=== PATIENT | female | born 1935 | race Caucasian/White ===

== ENCOUNTER 2021-09-17 13:40 | Outpatient (REF) | payer MEDICARE, SELFPAY ==
[2021-09-17 15:55] LABS: MANUAL DIFF FLAG NO
[2021-09-17 15:58] LABS: Basophils Percent Auto 0.6 % (0-2); Eosinophils Absolute Auto 0.1 X10*3/uL (0.0-0.4); Eosinophils Percent Auto 1.2 % (0-4); Hematocrit 38.8 % (37.0-47.0); Hemoglobin 12.9 g/dl (12.0-16.0); Imm Gran Abs Auto 0.01 X10*3/uL (0.00-0.03); Imm Gran Pct Auto 0.2 % (0.0-0.4); Lymphocytes Absolute Auto 1.3 X10*3/uL (1.2-4.9); Lymphocytes Percent Auto 25.4 % (20-40); Mean Corpuscular HGB Conc 33.2 g/dl (31.0-35.0); Mean Corpuscular Hemoglobin 30.1 pg (27.0-33.0); Mean Corpuscular Volume 90.7 fL (80.0-98.0); Mean Platelet Volume 11.5 fL (9.4-12.3); Monocytes Absolute Auto 0.4 X10*3/uL (0.1-1.2); Monocytes Percent Auto 7.3 % (2-11); Neutrophils Absolute Auto 3.2 x10*3/uL (2.0-8.3); Neutrophils Percent Auto 65.3 % (45-73); Platelet Count 204 X10*3/uL (160-400); Red Blood Count 4.28 X10*6/uL (4.20-5.50); Red Cell Distribution Width 13.1 % (11.0-16.0); White Blood Count 4.9 X10*3/uL (4.8-10.8)
[2021-09-17 16:10] LABS: Alanine Aminotransferase 14 U/L (0-31); Albumin Level 4.1 g/dL (3.5-5.0); Alkaline Phosphatase 108 U/L (39-117); Anion Gap 13 (12-20); Aspartate Amino Transferase 22 U/L (5-31); Bilirubin Total 0.9 mg/dL (0.0-1.0); Blood Urea Nitrogen 24 mg/dL (9-16); Calcium 9.1 mg/dL (8.4-10.2); Carbon Dioxide 25 mmol/L (22-29); Chloride 104 mmol/L (96-108); Cholesterol 207 mg/dL; Estimated Glomerular Filt Rate > 60; Glucose Random 114 mg/dL (60-115); Potassium 4.4 mmol/L (3.3-5.1); Sodium 138 mmol/L (135-145); Total Protein 6.8 g/dL (6.5-8.0)
[2021-09-17 16:26] LABS: B Type Natriuretic Peptide 244 pg/mL (<100)
[2021-09-17 16:32] LABS: Free T4 (Free Thyroxine) 1.16 ng/dL (0.71-1.85); Thyroid Stimulating Hormone 0.88 uIU/mL (0.32-4.0); Vitamin D 25-OH Total 13.7 ng/mL (>30)
== END 2021-09-17 13:41 | disposition home or self-care (01) ==
LOC: HO.HMGCLDS 13:40
PROVIDERS: Visit Provider Internal Medicine
DX: I10 Essential (primary) hypertension (principal); R60.9 Edema, unspecified; M81.0 Age-related osteoporosis without current pathological fracture; R63.4 Abnormal weight loss
CPT/HCPCS: 36415; 80053; 82306; 82465; 83880; 84439; 84443; 85025

== ENCOUNTER 2024-11-02 09:12 | Emergency (ER) | payer MEDICARE, SELFPAY ==
[2024-11-02] VITALS (7 sets, daily range): BP systolic 168–215; BP diastolic 69–119; PULSE 63–83; RESP 16–18; TEMP 35.8–36.8; O2SAT 95–99; BMI 17.6
--- NOTE | ~2024-11-02 | XR_ITS ---
CLINICAL HISTORY: trauma 4 view right knee Comparison: None Findings: Bones intact. No dislocations. There is advanced tricompartmental degenerative change present. No joint effusion. No radiopaque foreign body. IMPRESSION: 1. No acute findings. Tricompartmental degenerative change. This document has been electronically signed by: Celestino Jean Baptiste MD on 11/02/2024 12:11:45
--- NOTE | ~2024-11-02 | CT_ITS ---
CLINICAL HISTORY: RT KNEE PAIN ? FX CT of the right lower leg without contrast Comparison: None Findings: Visualized soft tissues are unremarkable. Diffuse osteopenia. No significant loss of joint space or osteophytes. No acute fracture. Tricompartmental periarticular osteophyte formation, indicating osteoarthritis. Periarticular osteophyte formation at the tibiotalar, talonavicular, naviculocuneiform, and subtalar joints. Calcaneal spurring. IMPRESSION: No acute findings. This document has been electronically signed by: Moise Fabian MD on 11/02/2024 14:39:26
--- NOTE | ~2024-11-02 | XR_ITS ---
CLINICAL HISTORY: trauma 1 view pelvis Comparison: None Findings: No acute fracture or dislocation. Moderate degenerative change at both hips. Soft tissues are unremarkable. IMPRESSION: 1. No acute findings. Moderate degenerative changes. This document has been electronically signed by: Celestino Jean Baptiste MD on 11/02/2024 12:10:28
--- NOTE | 2024-11-02 09:27 | ED_ITS ---
HPI - Fall General Chief Complaint: Fall Stated Complaint: WEAK,FALL LAST NIGHT,RLE PAIN/MOVEMENT,219/101 Time Seen by Provider: 11/02/24 09:19 Source: patient Mode of arrival: EMS Limitations: no limitations History of Present Illness HPI Narrative: This is a magaly 89 years old female patient presented to the emergency department after a fall last night. She is complaining of right knee pain she said she fell because the leg gave up. Denies any LOC denies any chest pain or shortness of breath she has a history of hypertension she has not taken BP medication this morning complaint: fall Onset (ago): day(s) (1) Fall from: standing Fall witnessed: no Place fall occurred: home Prolonged down time: no Symptoms prior to fall: none Context: tripped/slipped Location of injury - extremities: right: knee Severity: moderate Quality: burning Associated symptoms (after fall): denies Related Data Home Medications ?Medication ?Instructions ?Recorded ?Confirmed acetaminophen 325 mg tablet 325 mg PO BID 11/02/24 11/02/24 (Tylenol) aspirin 81 mg tablet,delayed 81 mg PO DAILY 11/02/24 11/02/24 release irbesartan 75 mg tablet 37.5 mg PO BID 11/02/24 11/02/24 Allergies Allergy/AdvReac Type Severity Reaction Status Date / Time No Known Drug Allergies Allergy Unknown U Verified 11/02/24 09:37 lisinopril [LISINOPRIL] AdvReac Intermediate COUGH Verified 11/02/24 09:37 Review of Systems 2 Constitutional: Constitutional: Reports no additional constitutional complaints ENT: Reports system reviewed and no additional complaints, except as documented Gastrointestinal: Gastrointestinal: Reports no additional gastrointestinal complaints [facility] Past Medical History Attestation statement: The following information was validated with the patient. [facility] Narrative: Hypertension Social History Social History Smoked in Last 30 Days: No Use of substances other than those prescribed or required for medical reasons: No Advance Directives: No Advance Directives Information Provided: Yes Do you have a plan to hurt others: No Plan Physical Exam 2 Vital Signs: Vital Signs: Last Vital Signs Temp 98.1 F 11/03/24 14:54 Pulse 75 11/03/24 14:54 Resp 20 11/03/24 14:54 BP 152/61 H 11/03/24 14:54 Pulse Ox 97 11/03/24 12:52 O2 Del Method Room Air, Oxymize r 11/03/24 14:54 BMI result Body Mass Index 17.6 Looks well not toxic appearing Const: General: cooperative Nutritional Appearance: well nourished O rientation/consciousness: patient oriented x3 HEENT: Head: Yes normal to inspection General nose exam: Normal external nose present Face and sinus: Yes normal facial exam Mouth: Normal oral and palatal mucosa present Throat: Yes posterior oropharynx normal Neck: Neck: Yes normal visual inspection and Yes full ROM Chest: Chest palpation & inspection: normal inspection of the chest Cardio: Jugular venous distension: no JVD Rate: regular rate GI: Inspection: Yes normal to inspection Palpation (GI): Soft to palpation, not firm and nontender Percussion: Yes normal to percussion Skin: General skin exam: no rashes or lesions noted and elasticity normal L esions: no lesions Rashes: no rashes Neuro: General: patient oriented x3 Extrem: Other: Tenderness in the right knee no deformity no effusion Course Reevaluation(s) Reevaluation #1: 15:20 THE PATIENT UNABLE TO AMBULATE WE ATTEMPTED AMBULATION TWICE, SHE LIVES HOME, AT THIS POINT WE WILL CONSULT SALES SUPPORT CONSULTANT A PT. PATIENT WILL BE ED OBS AT THIS POINT PATIENT WILL BE SIGNED OUT TO THE INCOMING ATTENDING AND 16:[address] Jones Time: 15:33 Reevaluation #2: Time: 17:58 Date: 11/02/24 Provider: Allen Mendieta MD Start physician observation Patient in physician observation for case management needs. The patient fell yesterday at 23:15 hours and did fall to her knees. According to the son she was able to get up several times during the night to use the bathroom. This morning however she was unable to get up and bear weight secondary to severe pain in her right knee. Patient was initially seen by Dr. Prieto and workup was negative including a negative CT scan of the right knee. On my evaluation the patient has symmetric edema to both lower extremities, right knee does not reveal any obvious evidence for trauma, there is no joint effusion, she does have pain with palpation of both knees and pain with flexion and extension of both knees. Patient was unable to stand and walk secondary to pain. Patient has been placed in physician observation for case management evaluation and physical therapy evaluation in the morning to determine if the patient meets criteria for shelter facility treatment or home care. I did fill out a MOLST form with the patient and she is a DNR DNI. She wants to use a noninvasive measures, transfer to hospital and IV fluid treatment but no IV nutrition. Patient was given Tylenol 975 mg orally for her pain. I also ordered ice to be applied to her right knee for 15-20 minutes every shift. Patient will be kept in physician observation and we will monitor her until a disposition can be determined. Time: 10:17 Date: 11/03/24 Provider: CEDRICK Triplett Patient in physician observation for case management needs. No acute events reported overnight.? No current issues or complaints. VS stable. Patient was evaluated by Physical therapy this morning and short-term rehab recommended. Case management working on placement. Will continue to monitor. Time: 14:54 Date: 11/03/24 Provider: Allen Mendieta MD Physician observation ended at 14:54. [facility] Medications Administered Discontinued Medications Generic Name Dose Route Start Last Admin Trade Name Freq PRN Reason Stop Dose Admin Acetaminophen 975 mg 11/02/24 11:25 11/02/24 11:58 Acetaminophen 325 Mg Tablet PO 11/02/24 11:26 975 mg ONCE ONE Administration Acetaminophen 650 mg 11/02/24 17:48 11/03/24 09:23 Acetaminophen 325 Mg Tablet PO 650 mg Q4H PRN Administration Pain, Moderate(Pain Scale 4-6) Aspirin 81 mg 11/02/24 17:15 11/03/24 09:23 Aspirin 81 Mg Tab.Chew PO 81 mg DAILY THOMAS Administration Oxycodone HCl 5 mg 11/02/24 20:04 11/02/24 20:34 Oxycodone Hcl Immed Release 5 Mg Tablet PO 5 mg Q4H PRN Administration Pain, Moderate(Pain Scale 4-6) Valsartan 20 mg 11/02/24 18:00 11/03/24 09:23 Valsartan 40 Mg Tablet PO 20 mg DAILY THOMAS Administration Medical Decision Making Medical Decision Making MDM Narrative: Patient presented after a fall we will obtain imaging of the right knee she is complaining of right knee pain also pelvis we will check blood work Differential Diagnosis Differential Diagnoses: The differential diagnosis associated with the presentation includes Fracture knee/dislocation/sprain Admission/Observation Consideration of admission/observation: Escalation of care including admission/observation considered Lab Data 11/02/24 09:58 11/02/24 09:58 Labs: Lab Results 11/02/24 11/02/24 11/03/24 Range/Units 09:58 12:18 13:36 WBC 4.9 (4.8-10.8) X10*3/uL RBC 4.28 (4.20-5.50) X10*6/uL Hgb 13.1 (12.0-16.0) g/dl Hct 39.4 (37.0-47.0) % MCV 92.1 (80.0-98.0) fL MCH 30.6 (27.0-33.0) pg MCHC 33.2 (31.0-35.0) g/dl RDW 13.2 (11.0-16.0) % Plt Count 166 (160-400) X10*3/uL MPV 10.4 (9.4-12.3) fL Immature Gran % (Auto) 0.2 (0.0-0.4) % Neut % (Auto) 73.7 H (45-73) % Lymph % (Auto) 16.5 L (20-40) % Lamar % (Auto) 8.4 (2-11) % Eos % (Auto) 0.6 (0-4) % Baso % (Auto) 0.6 (0-2) % Lymph # (Auto) 0.8 L (1.2-4.9) X10*3/uL Lamar # (Auto) 0.4 (0.1-1.2) X10*3/uL Eos # (Auto) 0.0 (0.0-0.4) X10*3/uL Baso # (Auto) 0.0 (0.0-0.2) X10*3/uL Abs Immat Gran (auto) 0.01 (0.00-0.03) X10*3/uL Absolute Neuts (auto) 3.6 (2.0-8.3) x10*3/uL Absolute Nucleated RBC 0.000 (0.0-0.012) X10*3/uL Nucleated RBC % (auto) 0.0 (0.0-0.2) /100WBC Sodium 139 (135-145) mmol/L Potassium 4.0 (3.3-5.1) mmol/L Chloride 107 (96-108) mmol/L Carbon Dioxide 24 (22-29) mmol/L Anion Gap 12 (12-20) BUN 18 H (9-16) mg/dL Creatinine 0.58 (0.5-1.4) mg/dL Estim Creat Clear Calc 46.1 Estimated GFR > 60 Random Glucose 92 (60-115) mg/dL Calcium 8.9 (8.4-10.2) mg/dL Total Bilirubin 0.9 (0.0-1.0) mg/dL AST 23 (5-31) U/L ALT 13 (0-31) U/L Alkaline Phosphatase 113 (39-117) U/L Troponin I High Sens 24.6 H 26.9 H (<3.5-17.0) ng/L Total Protein 6.7 (6.5-8.0) g/dL Albumin 4.0 (3.5-5.0) g/dL Influenza Type A (PCR) NEGATIVE (Negative) Influenza Type B (PCR) NEGATIVE (Negative) RSV RNA Qual (PCR) NEGATIVE (Negative) SARS-CoV-2 RNA (RT-PCR) NEGATIVE (Negative) Independent Interpretation I performed an independent interpretation of an: EKG Interpretation: EKG was reviewed interpreted by me as normal sinus rhythm rate [address]-T changes Discharge Plan Discharge Clinical Impression: Fall in elderly patient, Acute knee pain Patient Disposition: Xfer Inpatient Rehab Fac Transfer Details: TO [facility] Prescriptions: No Action acetaminophen [Tylenol] 325 mg Tablet 325 mg PO BID aspirin 81 mg Tablet,Delayed Release (Dr/Ec) 81 mg PO DAILY irbesartan 75 mg tablet 37.5 mg PO BID Referrals: [facility] [Outside] Roger Kay MD [Physician] - Interventions: ED Discharge Assessment Last Done: 11/03/24 14:54 Discharge Date/Time: 11/03/24 14:30 Print Language: Serbian
[2024-11-02 10:05] LABS: Basophils Percent Auto 0.6 % (0-2); Eosinophils Percent Auto 0.6 % (0-4); Hematocrit 39.4 % (37.0-47.0); Hemoglobin 13.1 g/dl (12.0-16.0); Imm Gran Abs Auto 0.01 X10*3/uL (0.00-0.03); Imm Gran Pct Auto 0.2 % (0.0-0.4); Lymphocytes Absolute Auto 0.8 X10*3/uL (1.2-4.9); Lymphocytes Percent Auto 16.5 % (20-40); MANUAL DIFF FLAG NO; Mean Corpuscular HGB Conc 33.2 g/dl (31.0-35.0); Mean Corpuscular Hemoglobin 30.6 pg (27.0-33.0); Mean Corpuscular Volume 92.1 fL (80.0-98.0); Mean Platelet Volume 10.4 fL (9.4-12.3); Monocytes Absolute Auto 0.4 X10*3/uL (0.1-1.2); Monocytes Percent Auto 8.4 % (2-11); Neutrophils Absolute Auto 3.6 x10*3/uL (2.0-8.3); Neutrophils Percent Auto 73.7 % (45-73); Platelet Count 166 X10*3/uL (160-400); Red Blood Count 4.28 X10*6/uL (4.20-5.50); Red Cell Distribution Width 13.2 % (11.0-16.0); White Blood Count 4.9 X10*3/uL (4.8-10.8)
--- NOTE | 2024-11-02 10:12 | PC.NURSE ---
Pt biba from home for fall last night. Per pt she was getting into bed and felt weak/her legs gave out and fell to the floor. -HS, -LOC, -thinners, family called EMS to help pt get back into bed. Today pt started with R knee pain- denies head, neck, or back pain. R knee swollen/contusion- discoloration/pain at R knee. Per pt, lives at home with son, daughter is primary health care sanitary technician of her- daughter on vacation, grandlesia has been caring for her at home. Pt able to ambulate with walker independently at baseline. A/ox3, speech clear and appropriate, speaking in full sentences, respirations even and unlabored, no increased wob/sob noted, maintaining O2 sat >92% on RA, placed on lunchroom monitor, nsr HR 60s- denies cp/sob. Left lower extremity edema > Right lower extremity. Pt denies cardiac hx/sob. Call vale within reach, all needs met at this time.
[2024-11-02 10:20] LABS: Alanine Aminotransferase 13 U/L (0-31); Alkaline Phosphatase 113 U/L (39-117); Anion Gap 12 (12-20); Aspartate Amino Transferase 23 U/L (5-31); Bilirubin Total 0.9 mg/dL (0.0-1.0); Blood Urea Nitrogen 18 mg/dL (9-16); Calcium 8.9 mg/dL (8.4-10.2); Carbon Dioxide 24 mmol/L (22-29); Chloride 107 mmol/L (96-108); Creatinine Clr Calc Pharmacy 46.1; Estimated Glomerular Filt Rate > 60; Glucose Random 92 mg/dL (60-115); Sodium 139 mmol/L (135-145); Total Protein 6.7 g/dL (6.5-8.0)
[2024-11-02 10:27] LABS: Troponin-I High Sensitivity 24.6 ng/L (<3.5-17.0)
--- NOTE | 2024-11-02 10:45 | ECG_ITS ---
Test Reason : chest pain Blood Pressure : */* mmHG Vent. Rate : 87 BPM Atrial Rate : 83 BPM P-R Int : * ms QRS Dur : 94 ms QT Int : 414 ms P-R-T Axes : * -48 43 degrees QTcB Int : 498 ms Normal sinus rhythm with PACs Incomplete right bundle branch block Left anterior fascicular block Moderate voltage criteria for LVH, may be normal variant ( R in aVL , [place] product ) Septal infarct , age undetermined Abnormal ECG When compared with ECG of 16-Apr-2013 20:06, Current undetermined rhythm precludes rhythm comparison, needs review Septal infarct is now Present Nonspecific T wave abnormality now evident in Lateral leads Referred By: Giuliano Prieto Electronically Signed By: Jayce Ramirez
--- NOTE | 2024-11-02 11:52 | ECG_ITS ---
Test Reason : fall Blood Pressure : */* mmHG Vent. Rate : 74 BPM Atrial Rate : 77 BPM P-R Int : 136 ms QRS Dur : 84 ms QT Int : 440 ms P-R-T Axes : 47 -51 51 degrees QTcB Int : 488 ms Sinus rhythm with Premature atrial complexes Left axis deviation Minimal voltage criteria for LVH, may be normal variant ( R in aVL ) Septal infarct (cited on or before 02-Nov-2024) Abnormal ECG When compared with ECG of 02-Nov-2024 11:00, Previous ECG has undetermined rhythm, needs review Incomplete right bundle branch block is no longer Present Referred By: Allen Mendieta Electronically Signed By: Jayce Ramirez
[2024-11-02] MEDS: Acetaminophen 325 MG TABLET 975 MG PO (11:58)
[2024-11-02 12:42] LABS: Troponin-I High Sensitivity 26.9 ng/L (<3.5-17.0)
--- NOTE | 2024-11-02 17:34 | PHA.MEDREC ---
Addendum entered by Kathie Torres RPh 11/02/24 17:41: Reviewed by [facility] Original Note: Pharmacy Consult ? Medication Reconciliation Pharmacy has completed the medication reconciliation. Spoke to pt's family to confirm meds.
[2024-11-02] MEDS: Aspirin 81 MG TAB.CHEW PO (18:36)
[2024-11-02] MEDS: Acetaminophen 325 MG TABLET 650 MG PO (18:37)
[2024-11-02] MEDS: Valsartan 40 MG TABLET 20 MG PO (18:55)
--- NOTE | 2024-11-02 19:06 | PC.NURSE ---
Pt BP noted to be high 180s/110s- MD Mendieta made aware. Pt home dose of Valsartan given. Pt up out of bed to commode- 2 assist, pt unsteady/unable to hold herself up to get to commode.
--- NOTE | 2024-11-02 19:33 | MHC.EDTECH ---
Assisted pt off commode and back to bed after bm. Pt cleaned and purewick placed back. RN aware.
[2024-11-02] MEDS: oxyCODONE HCl Immed Release 5 MG TABLET PO (20:34)
[2024-11-03] MEDS: Acetaminophen 325 MG TABLET 650 MG PO ×2 (05:47→09:23)
[2024-11-03 05:48] VITALS: BP 179/74; PULSE 67; RESP 24; TEMP 36.7; O2SAT 97
[2024-11-03 07:30] VITALS: BP 157/71; PULSE 68; RESP 14; TEMP 36.6; O2SAT 97
[2024-11-03] MEDS: Aspirin 81 MG TAB.CHEW PO (09:23)
[2024-11-03] MEDS: Valsartan 40 MG TABLET 20 MG PO (09:23)
--- NOTE | 2024-11-03 09:29 | MHC.CM.ED ---
Addendum entered by Piper Cohen 11/03/24 12:24: Copy of HCP obtained from daughterRadha. Addendum entered by Piper Cohen 11/03/24 10:53: [facility] is able to offer a bed. Facility has been asked to obtain insurance auth. Original Note: Received case management consult overnight. Patient came to the ER due to a fall. Work up essentially negative. Physical therapy eval completed. Short term rehab is recommended. Met with patient and son in regards to discharge planning. PCP was Dr Kay. However he retired and patient reports not having a new PCP yet. Patient's daughter, Radha has a copy of patient's HCP and has been asked to provide a copy. [facility] is patient's 1st choice for STR. Referral made via [facility]. Continue to monitor for d/c needs.
--- NOTE | 2024-11-03 09:41 | PC.NURSE ---
Pt takes pills whole one at a time with water
[2024-11-03 10:58] VITALS: BP 148/67; PULSE 68; TEMP 36.2; O2SAT 97
[2024-11-03 12:52] VITALS: BP 146/62; PULSE 73; RESP 16; TEMP 36.7; O2SAT 97
--- NOTE | 2024-11-03 12:58 | MHC.CM.ED ---
Insurance auth has been obtained. Patient can leave at 2pm. MIAH MARTIN booked. Med nec with chart. Patient, daughter Xi Garcia RN and Juliet PHILIP aware. Continue to monitor for d/c needs.
[2024-11-03 14:16] VITALS: BP 152/61; PULSE 75; RESP 20; TEMP 36.7
[2024-11-03 14:23] LABS: Influenza A PCR NEGATIVE (Negative); Influenza B PCR NEGATIVE (Negative); Resp Syncy Virus RNA Qual PCR NEGATIVE (Negative); SARS COV2 PCR INHOUSE NEGATIVE (Negative)
[2024-11-03 14:54] VITALS: BP 152/61; PULSE 75; RESP 20; TEMP 36.7
== END 2024-11-03 14:30 ==
PROVIDERS: Emergency Medicine; Physician Assistant; Emergency Provider Emergency Medicine Emergency Medical Services
DX: M25.561 Pain in right knee (principal); Z91.81 History of falling; Z03.818 Encounter for observation for suspected exposure to other biological agents ruled out; I10 Essential (primary) hypertension; Z79.899 Other long term (current) drug therapy
CPT/HCPCS: 0241U; 36415; 72170; 73564; 73700; 80053; 84484; 85025; 93005; 97161; 99285

== ENCOUNTER → 2024-11-02 09:22 | Outpatient (BNV) | payer MEDICARE, SELFPAY | PROVIDERS: Emergency Provider Emergency Medicine; Visit Provider Radiology Vascular & Interventional Radiology | DX: M25.561 Pain in right knee (principal); M17.11 Unilateral primary osteoarthritis, right knee; M16.10 Unilateral primary osteoarthritis, unspecified hip | CPT/HCPCS: 72170; 73564; 73700 ==

== ENCOUNTER → 2024-11-02 10:45 | Outpatient (BNV) | payer MEDICARE, SELFPAY | PROVIDERS: Emergency Provider Emergency Medicine Emergency Medical Services; Visit Provider Internal Medicine Cardiovascular Disease | DX: I45.2 Bifascicular block (principal); I49.1 Atrial premature depolarization | CPT/HCPCS: 93010 ==

== ENCOUNTER 2025-06-02 11:13 | Outpatient (AMB) | payer MEDICARE, SELFPAY ==
[2025-06-02 11:18] VITALS: BP 100/68; PULSE 72; RESP 16; TEMP 36.5; O2SAT 97
--- NOTE | 2025-06-02 11:56 | A.OFFPC_ITS ---
Vital Signs 06/02/25 11:18 BP 100/68 Blood Pressure Location Lt brachial Respiration 16 Pulse 72 Temp 97.7 F Temp Source Oral Pulse Oximetry (%) 97 Oxygen Delivery Method Room Air Intake Visit Reasons: Rehab follow up Allergies No Known Drug Allergies Allergy (Unknown, Verified 11/02/24 09:37) U lisinopril (LISINOPRIL) Adverse Reaction (Intermediate, Verified 11/02/24 09:37) COUGH Medication List - Last Reconciled 06/02/25 by Penelope Rossi MD acetaminophen (Tylenol) 325 mg PO BID aspirin 81 mg PO DAILY baclofen 2.5 orally 3 times a day; escitalopram oxalate (Lexapro) 5 mg PO DAILY mirtazapine 7.5 mg PO BEDTIME HPI HPI Comments History of Present Illness Details History of Present Illness The patient is an 89 year old female presenting for a telehealth visit to establish care with her daughter, who is her healthcare proxy. Profound Weakness: The patient experienced profound weakness starting in October 2024, which led to a prolonged rehabilitation course. She has returned home and requires a Sussy lift for transfers. Anxiety: The patient has a history of anxiety, which is managed with Lexapro and clonazepam 0.125 mg twice daily. Her daughter reports the medication helps keep the patient calm without significant changes to her baseline mental status. Depression/Dementia: The patient has a history of depression and is treated with mirtazapine 7.5 mg once daily. Daughter notes patient has issues with short term memory. Hypertension: The patient has a history of hypertension; her prior medication, an irbesartan- hydrochlorothiazide combination tablet, was discontinued. History of Cerebrovascular Accident: The patient has a history of strokes, with the last event occurring approximately 6 years ago. She has residual left ear hearing loss and takes a daily baby aspirin. B12 Deficiency: The patient has a history of B12 deficiency. Muscle Spasms: The patient takes baclofen 2.5 mg three times per day as needed for spasms. Medical History: - B12 deficiency - History of strokes, with the most rece nt occurring approximately 6 years prior, resulting in residual left ear hearing loss - Hypertension - Depression - Anxiety - Profound weakness requiring a prolonge d rehab course Social History: - The patient is back home with her daswathi hterRadha, who is her healthcare proxy. - The patient requires assistance with c are and the use of a Sussy lift. - The patient is homebound. Results - Immunizations: Received flu shot and C OVID shot in April at a rehab facility. [facility], [facility] Medical History (Updated 06/02/25 @ 18:10 by Penelope Rossi MD) Primary hypertension Depression with anxiety Routine medical exam B12 deficiency anemia Review of Systems Narrative Review of Systems - HEENT: Reports residual hearing loss in the left ear. - Psychiatric: Reports history of anxiety and depression. - Neurological: Reports history of strokes and muscle spasms. Denies significant changes in baseline mental status. Physical exam (Primary Care) Vital Signs: Last Vital Signs Temp 97.7 F 06/02/25 11:18 Pulse 72 06/02/25 11:18 Resp 16 06/02/25 11:18 BP 100/68 06/02/25 11:18 Pulse Ox 97 06/02/25 11:18 Oxygen Delivery Method Room Air 06/02/25 11:18 Coding Level of Care Code Tele New Pt Level 4 (88036) Add On Problem Visit Only Diagnoses Anemia due to vitamin B12 deficiency, unspecified B12 deficiency type D51.9 Vitamin B12 deficiency anemia type: unspecified B12 deficiency Depression with anxiety F41.8 Primary hypertension I10 Time Spent (min) 30 Comment including chart review, document prep, visit time, ordering of tests Assessment & Plan Assessment & Plan (1) B12 deficiency anemia: Code(s): D51.9 - Vitamin B12 deficiency anemia, unspecified Category: Medical Qualifiers: Vitamin B12 deficiency anemia type: unspecified B12 deficiency Qualified Code(s): D51.9 - Vitamin B12 deficiency anemia, unspecified (2) Depression with anxiety: Code(s): F41.8 - Other specified anxiety disorders Category: Medical (3) Primary hypertension: Code(s): I10 - Essential (primary) hypertension Category: Medical Plan Plan see below 1. Follow-Up - Laboratory studies will be ordered, including a CBC, comprehensive metabolic profile, direct LDL, hemoglobin A1c, thyroid panel, vitamin B12, and folic acid. - A home draw will be requested as the patient is homebound. - Medication refills will be provided. - The patient will follow up in 1 month. 2. Anxiety - Continue clonazepam 0.125 mg twice daily as it has been helping to keep the patient calm with no significant changes in her baseline mental status. - Continue Lexapro. 3. Depression - continue current regimen 4. Dementia - continue current regimen Discussion Notes I conducted a telehealth visit with the patient and her daughter, Radha, who is her healthcare proxy. We discussed the patient's anxiety and the side effects associated with benzodiazepine use. The daughter noted the current regimen is effective without causing significant changes in mental status. We will proceed with ordering a panel of labs via a home draw service, as the patient is homebound. Refills have been provided, and a follow-up visit is scheduled for one month. Patient Instructions - Continue taking your current medications as prescribed. Orders: Orders IRON PROFILE Today D51.9 - Vitamin B12 deficiency anemia, unspecified, Z00.00 - Encounter for general adult medical examination without abnormal findings Magnesium Today D51.9 - Vitamin B12 deficiency anemia, unspecified, Z00.00 - Encounter for general adult medical examination without abnormal findings LDL Cholesterol Direct Today D51.9 - Vitamin B12 deficiency anemia, unspecified, Z00.00 - Encounter for general adult medical examination without abnormal findings Comprehensive Met. Panel Today D51.9 - Vitamin B12 deficiency anemia, unspecified, Z00.00 - Encounter for general adult medical examination without abnormal findings Complete Blood Count Auto Diff Today D51.9 - Vitamin B12 deficiency anemia, unspecified, Z00.00 - Encounter for general adult medical examination without abnormal findings TSH reflex Free T4 Today D51.9 - Vitamin B12 deficiency anemia, unspecified, Z00.00 - Encounter for general adult medical examination without abnormal findings Vitamin B12 Today D51.9 - Vitamin B12 deficiency anemia, unspecified, Z00.00 - Encounter for general adult medical examination without abnormal findings Vitamin D 25-OH Total Today D51.9 - Vitamin B12 deficiency anemia, unspecified, Z00.00 - Encounter for general adult medical examination without abnormal findings Folate Today D51.9 - Vitamin B12 deficiency anemia, unspecified, Z00.00 - Encounter for general adult medical examination without abnormal findings Ferritin Today D51.9 - Vitamin B12 deficiency anemia, unspecified, Z00.00 - Encounter for general adult medical examination without abnormal findings Hemoglobin A1c Today D51.9 - Vitamin B12 deficiency anemia, unspecified, Z00.00 - Encounter for general adult medical examination without abnormal findings Medications: New escitalopram oxalate (Lexapro) 5 mg PO DAILY 90 tabs 3RF clonazepam (Klonopin) 0.125 mg (1/4 x 0.5 mg) PO BID 15 tabs 5RF 30 days mirtazapine 7.5 mg PO BEDTIME 90 tabs 3RF Changed From baclofen 2.5 orally 3 times a day; To baclofen 2.5 mg (1/2 x 5 mg) PO TID 135 tabs 3RF 90 days
--- OUTSIDE RECORDS SUMMARY | 2025-06-02 14:47 | XMS_ITS | Encounter Summary ---
Author Organization [employer] Address [address] [place] [address] Care Team Providers Care Beef Cattle Farm Manager Name Role Phone Светлана Ball MD Primary Care Provider + Encounter Details Date Type Department Care Team (Late st Contact Info) Description 11/28/2024 Lab Requisition [facility] - Main Lab 299 [facility] [place] [address] Светлана Ball MD [address] [facility] 1 [place] [address] Unspecified sequelae of cerebral infarction; Essential (primary) hypertension Social History Tobacco Use Types Packs/Day Years Used Date Smoking Tobacco: Unknown Alcohol Use Standard Drinks/Week Comments Not Currently 0 (1 standard drink = 0.6 oz pur e alcohol) Interpersonal Safety Answer Date Record ed Physical Abuse Unrecognized value 11/24/2024 Verbal Abuse Unrecognized value 11/24/2024 Comments Unknown Sex and Gender Information Value Date Recorded Sex Assigned at Not on file Legal Sex Female 9:21 AM EDT Gender Identity Not on file Sexual Orientation Not on file documented as of this encounter Plan of Treatment Not on file documented as of this encounter Procedures Procedure Name Priority Date/Time Associated Diagnosis Comments COMPLETE BLOOD COUNT Routine 12/01/2024 6:07 AM EDT Unspecified sequelae of cerebral infarction Essential (primary) hypertension COMPREHENSIVE METABOLIC PANEL Routine 12/01/2024 6:07 AM EDT Unspecified sequelae of cerebral infarction Essential (primary) hypertension documented in this encounter Results * (ABNORMAL) Comprehensive metabolic panel (12/01/2024 6:07 AM EDT) Sodium 138 133 - 145 mmol/L LAB CHEMISTRY METHOD 12/01/2024 1:[address] [facility] Potassium 5.3 3.5 - 5.5 mmol/L LAB CHEMISTRY METHOD 12/01/2024 1:[address] [facility] Chloride 104 96 - 110 mmol/L LAB CHEMISTRY METHOD 12/01/2024 1:[address] [facility] CO2 29 21 - 32 mmol/L LAB CHEMISTRY METHOD 12/01/2024 1:[address] [facility] Anion Gap 5 3 - 11 LAB CHEMISTRY METHOD 12/01/2024 1:[address] [facility] Glucose 68(L) 70 - 100 mg/dL LAB CHEMISTRY METHOD 12/01/2024 1:[address] [facility] BUN 18 5 - 25 mg/dL LAB CHEMISTRY METHOD 12/01/2024 1:[address] [facility] Creatinine 0.46(L) 0.50 - 1.10 mg/dL LAB CHEMISTRY METHOD 12/01/2024 1:[address] [facility] eGFR 92 >=60 mL/min/1. 73m2 LAB CHEMISTRY METHOD 12/01/2024 1:[address] [facility] Comment:Calculation based on the Chronic Kidney Disease Epidemiology Collaboration (CKD-EPI) equation refit without adjustment for race. BUN/Creatinine Ratio 39.1 LAB CHEMISTRY METHOD 12/01/2024 1:[address] [facility] Calcium 8.6 8.5 - 10.5 mg/dL LAB CHEMISTRY METHOD 12/01/2024 1:[address] [facility] AST (SGOT) 19 10 - 42 unit/L LAB CHEMISTRY METHOD 12/01/2024 1:[address] [facility] ALT (SGPT) 23 10 - 60 unit/L LAB CHEMISTRY METHOD 12/01/2024 1:[address] [facility] Alkaline Phosphatase 111 42 - 121 unit/L LAB CHEMISTRY METHOD 12/01/2024 1:22 PM EDT [facility] Total Protein 5.9(L) 6.0 - 8.0 g/dL LAB CHEMISTRY METHOD 12/01/2024 1:22 PM T [facility] Albumin 3.0(L) 3.2 - 5.0 g/dL LAB CHEMISTRY METHOD 12/01/2024 1:22 PM EDT [facility] Total Bilirubin 0.8 0.0 - 1.4 mg/dL LAB CHEMISTRY METHOD 12/01/2024 1:22 PM T [facility] Blood Venous blood specimen / Unknown Venipuncture / Unknown 12/01/2024 6:07 AM EDT 12/01/2024 10:46 AM EDT us Светлана Ball MD LAB BLOOD ORDERABLES Fin al Result [facility] [address] [place] [address], * (ABNORMAL) Complete blood count (12/01/2024 6:07 AM EDT) WBC 3.8(L) 4.8 - 10.8 K/mcL LAB HEMETOLOGY METHOD 12/01/2024 11:51 AM EDT [facility] RBC 4.10 3.80 - 4.80 M/mcL LAB HEMETOLOGY METHOD 12/01/2024 11:51 AM EDT [facility] Hemoglobin 12.4 11.5 - 16.0 g/dL LAB HEMETOLOGY METHOD 12/01/2024 11:51 AM EDT [facility] Hematocrit 39.4 35.0 - 47.0 % LAB HEMETOLOGY METHOD 12/01/2024 11:51 AM EDT [facility] MCV 96.3 79.0 - 98.0 FL LAB HEMETOLOGY METHOD 12/01/2024 11:51 AM EDT [facility] MCH 30.3 27.0 - 32.0 pcg LAB HEMETOLOGY METHOD 12/01/2024 11:51 AM EDT [facility] MCHC 31.5(L) 32.0 - 37.0 g/dL LAB HEMETOLOGY METHOD 12/01/2024 11:51 AM EDT [facility] RDW 13.4 11.0 - 15.0 % LAB HEMETOLOGY METHOD 12/01/2024 11:51 AM EDT [facility] Platelets 243 130 - 400 K/mcL LAB HEMETOLOGY METHOD 12/01/2024 11:51 AM T [facility] MPV 11.2(H) 7.0 - 11.0 FL LAB HEMETOLOGY METHOD 12/01/2024 11:51 AM EDT [facility] NRBC 0.0 <1.0 % LAB HEMETOLOGY METHOD 12/01/2024 11:51 AM T [facility] NRBC Absolute 0.00 <0.10 K/mcL LAB HEMETOLOGY METHOD 12/01/2024 11:[address] [facility] Blood Venous blood specimen / Unknown Venipuncture / Unknown 12/01/2024 6:07 AM EDT 12/01/2024 10:46 AM EDT us Светлана Ball MD LAB BLOOD ORDERABLES Fin al Result [facility] [address] [place] [address], documented in this encounter Visit Diagnoses Diagnosis Unspecified sequelae of cerebral infarction Essential (primary) hypertension Unspecified essential hypertension documented in this encounter Care Teams Beef Cattle Farm Manager Relationship Specialty Start Date End Date Светлана Ball MD [address] [place] [id number] PCP - General Family Medicine 11/04/24 documented as of this encounter
--- OUTSIDE RECORDS SUMMARY | 2025-06-02 14:47 | XMS_ITS | Encounter Summary ---
Author Organization [email or web address] Address [address] [place] [address] Care Team Providers Care Naprapath Name Role Phone Светлана Ball MD Primary Care Provider + Encounter Details Date Type Department Care Team (Late st Contact Info) Description 01/18/2025 Lab Requisition [facility] - Main Lab 299 [facility] [place] [address] Светлана Ball MD 819 [facility] 1 [place] [address] Unspecified sequelae of cerebral infarction; [...] Associated Diagnosis Comments COMPLETE BLOOD COUNT Routine 01/19/2025 9:02 AM EDT Unspecified sequelae of cerebral infarction Essential (primary) hypertension COMPREHENSIVE METABOLIC PANEL Routine 01/19/2025 9:02 AM EDT Unspecified sequelae of cerebral infarction Essential (primary) hypertension documented in this encounter Results * (ABNORMAL) Comprehensive metabolic panel (01/19/2025 9:02 AM EDT) Sodium 136 133 - 145 mmol/L LAB CHEMISTRY METHOD 01/19/2025 1:15 PM [facility] Potassium 4.6 3.5 - 5.5 mmol/L LAB CHEMISTRY METHOD 01/19/2025 1:15 PM [facility] Chloride 102 96 - 110 mmol/L LAB CHEMISTRY METHOD 01/19/2025 1:15 PM [facility] CO2 28 21 - 32 mmol/L LAB CHEMISTRY METHOD 01/19/2025 1:15 PM [facility] Anion Gap 6 3 - 11 LAB CHEMISTRY METHOD 01/19/2025 1:15 PM [facility] Glucose 93 70 - 100 mg/dL LAB CHEMISTRY METHOD 01/19/2025 1:15 PM [facility] BUN 20 5 - 25 mg/dL LAB CHEMISTRY METHOD 01/19/2025 1:15 PM [facility] Creatinine 0.47(L) 0.50 - 1.10 mg/dL LAB CHEMISTRY METHOD 01/19/2025 1:15 PM [facility] eGFR 91 >=60 mL/min/1. 73m2 LAB CHEMISTRY METHOD 01/19/2025 1:15 PM [facility] Comment:Calculation based on the Chronic Kidney Disease Epidemiology Collaboration (CKD-EPI) equation refit without adjustment for race. BUN/Creatinine Ratio 42.6 LAB CHEMISTRY METHOD 01/19/2025 1:15 PM [facility] Calcium 8.9 8.5 - 10.5 mg/dL LAB CHEMISTRY METHOD 01/19/2025 1:15 PM [facility] AST (SGOT) 18 10 - 42 unit/L LAB CHEMISTRY METHOD 01/19/2025 1:15 PM [facility] ALT (SGPT) 31 10 - 60 unit/L LAB CHEMISTRY METHOD 01/19/2025 1:15 PM [facility] Alkaline Phosphatase 125(H) 42 - 121 unit/L LAB CHEMISTRY METHOD 01/19/2025 1:15 PM EDT [facility] Total Protein 5.8(L) 6.0 - 8.0 g/dL LAB CHEMISTRY METHOD 01/19/2025 1:15 PM [facility] Albumin 3.0(L) 3.2 - 5.0 g/dL LAB CHEMISTRY METHOD 01/19/2025 1:15 PM EDT [facility] Total Bilirubin 0.5 0.0 - 1.4 mg/dL LAB CHEMISTRY METHOD 01/19/2025 1:15 PM T [facility] Blood Venous blood specimen / Unknown Venipuncture / Unknown 01/19/2025 9:02 AM EDT 01/19/2025 10:59 AM EDT us Светлана Ball MD LAB BLOOD ORDERABLES Fin al Result [facility] [address] [place] [address], * (ABNORMAL) Complete blood count (01/19/2025 9:02 AM EDT) WBC 4.4(L) 4.8 - 10.8 K/mcL LAB [facility] RBC 3.90 3.80 - 4.80 M/mcL LAB [facility]OLOG[facility] Hemoglobin 12.0 11.5 - 16.0 g/dL LAB HEMETOLOGY METHOD 01/19/2025 12:00 PM [facility] Hematocrit 36.0 35.0 - 47.0 % LAB HEMETOLOGY METHOD 01/19/2025 12:00 PM [facility] MCV 92.8 79.0 - 98.0 FL LAB HEMETOLOGY METHOD 01/19/2025 12:00 PM EDT [facility] MCH 30.9 27.0 - 32.0 pcg LAB HEMETOLOGY METHOD 01/19/2025 12:00 PM EDT [facility] MCHC 33.3 32.0 - 37.0 g/dL LAB HEMETOLOGY METHOD 01/19/2025 12:00 PM EDT [facility] RDW 12.3 11.0 - 15.0 % LAB HEMETOLOGY METHOD 01/19/2025 12:00 PM EDT [facility] Platelets 281 130 - 400 K/mcL LAB HEMETOLOGY METHOD 01/19/2025 12:00 PM EDT [facility] MPV 9.9 7.0 - 11.0 FL LAB HEMETOLOGY METHOD 01/19/2025 12:00 PM EDT [facility] NRBC 0.0 <1.0 % LAB HEMETOLOGY METHOD 01/19/2025 12:00 PM EDT [facility] NRBC Absolute 0.00 <0.10 K/mcL LAB HEMETOLOGY METHOD 01/19/2025 12:00 PM EDT [facility] Blood Venous blood specimen / Unknown Venipuncture / Unknown 01/19/2025 9:02 AM EDT 01/19/2025 10:59 AM EDT us Светлана Ball MD LAB BLOOD ORDERABLES Fin al Result [facility] [address] [place] [address], documented in this encounter Visit Diagnoses Diagnosis Unspecified sequelae of cerebral infarction Essential (primary) hypertension Unspecified essential hypertension documented in this encounter Care Teams Naprapath Relationship Specialty Start Date End Date Светлана Ball MD [address] [place] [id number] PCP - General Family Medicine 11/04/24 documented as of this encounter
--- OUTSIDE RECORDS SUMMARY | 2025-06-02 14:47 | XMS_ITS | Encounter Summary ---
Author Organization [employer] Address [address] [place] [address] Care Team Providers Care Auto Mechanics Instructor Name Role Phone Светлана Ball MD Primary Care Provider + Encounter Details Date Type Department Care Team (Late st Contact Info) Description 11/24/2024 Lab Requisition [facility] - Main Lab 299 [facility] [place] [address] Светлана Ball MD [address] [address] Essential (primary) hypertension Social History Tobacco Use [...] on file documented as of this encounter Functional Status * Calculated C-SSRS Risk Score (Lifetime/Recent) Answer Date of Assessment Author No Risk Indicated 11/24/2024 10:21 PM EDT Melissa Garcia RN * Ross Suicide Severity Rating Scale (Screener/Recent Self-Report) Question Answer Date of Assessment Author 1. Wish to be (Past 1 Month) No 11/24/2024 10:21 PM EDT Melissa Garcia RN 2. Non-Specific Active Suici nieves Thoughts (Past 1 Month) No 11/24/2024 10:21 PM EDT Kimberly Garcia RN 6. Suicidal Behavior (Lifetime) No 10:21 PM EDT Melissa Garcia RN documented as of this encounter Plan of Treatment Not on file documented as of this encounter Procedures Procedure Name Priority Date/Time Associated Diagnosis Comments COMPLETE BLOOD COUNT Routine 11/24/2024 6:10 AM EDT Essential (primary) hypertension THYROID STIMULATING HORMONE Routine 11/24/2024 6:10 AM EDT Essential (primary) hypertension MAGNESIUM Routine 11/24/2024 6:10 AM EDT Essential (primary) hypertension COMPREHENSIVE METABOLIC PANEL Routine 11/24/2024 6:10 AM EDT Essential (primary) hypertension documented in this encounter Results * Magnesium (11/24/2024 6:10 AM EDT) Magnesium 2.0 1.9 - 2.6 mg/dL LAB CHEMISTRY METHOD 11/24/2024 11:57 AM EDT [facility] Blood Venous blood specimen / Unknown Venipuncture / Unknown 11/24/2024 6:10 AM EDT 11/24/2024 11:09 AM EDT Светлана Ball MD LAB BLOOD ORDERABLES Fin al Result [facility] [address] [place] [address], * Thyroid stimulating hormone (11/24/2024 6:10 AM EDT) TSH 1.31 0.40 - 4.00 mcIU/mL LAB CHEMISTRY METHOD 11/24/2024 5:27 PM EDT [facility] Blood Venous blood specimen / Unknown Venipuncture / Unknown 11/24/2024 6:10 AM EDT 11/24/2024 11:09 AM EDT Светлана Ball MD LAB BLOOD ORDERABLES Fin al Result [facility] [address] [place] [address], * (ABNORMAL) Comprehensive metabolic panel (11/24/2024 6:10 AM EDT) Sodium 134 133 - 145 mmol/L LAB CHEMISTRY METHOD 11/24/2024 11:57 AM T [facility] Potassium 4.8 3.5 - 5.5 mmol/L LAB CHEMISTRY METHOD 11/24/2024 11:57 AM [facility] Chloride 101 96 - 110 mmol/L LAB CHEMISTRY METHOD 11/24/2024 11:57 AM [facility] CO2 25 21 - 32 mmol/L LAB CHEMISTRY METHOD 11/24/2024 11:57 AM [facility] Anion Gap 8 3 - 11 LAB CHEMISTRY METHOD 11/24/2024 11:57 AM [facility] Glucose 74 70 - 100 mg/dL LAB CHEMISTRY METHOD 11/24/2024 11:57 AM [facility] BUN 19 5 - 25 mg/dL LAB CHEMISTRY METHOD 11/24/2024 11:57 AM [facility] Creatinine 0.47(L) 0.50 - 1.10 mg/dL LAB CHEMISTRY METHOD 11/24/2024 11:57 AM [facility] eGFR 92 >=60 mL/min/1. 73m2 LAB CHEMISTRY METHOD 11/24/2024 11:57 AM [facility] Comment:Calculation based on the Chronic Kidney Disease Epidemiology Collaboration (CKD-EPI) equation refit without adjustment for race. BUN/Creatinine Ratio 40.4 LAB CHEMISTRY METHOD 11/24/2024 11:57 AM [facility] Calcium 9.3 8.5 - 10.5 mg/dL LAB CHEMISTRY METHOD 11/24/2024 11:57 AM [facility] AST (SGOT) 23 10 - 42 unit/L LAB CHEMISTRY METHOD 11/24/2024 11:57 AM EDT [facility] ALT (SGPT) 31 10 - 60 unit/L LAB CHEMISTRY METHOD 11/24/2024 11:57 AM EDT [facility] Alkaline Phosphatase 121 42 - 121 unit/L LAB CHEMISTRY METHOD 11/24/2024 11:57 AM EDT [facility] Total Protein 6.2 6.0 - 8.0 g/dL LAB CHEMISTRY METHOD 11/24/2024 11:57 AM EDT [facility] Albumin 3.5 3.2 - 5.0 g/dL LAB CHEMISTRY METHOD 11/24/2024 11:57 AM [facility] Total Bilirubin 0.9 0.0 - 1.4 mg/dL LAB CHEMISTRY METHOD 11/24/2024 11:57 AM T [facility] Blood Venous blood specimen / Unknown Venipuncture / Unknown 11/24/2024 6:10 AM EDT 11/24/2024 11:09 AM EDT us Светлана Ball MD LAB BLOOD ORDERABLES Fin al Result [facility] [address] [place] [address], * Complete blood count (11/24/2024 6:10 AM EDT) WBC 5.2 4.8 - 10.8 K/mcL LAB HEMETOLOGY METHOD 11/24/2024 2:24 PM EDT [facility] RBC 4.20 3.80 - 4.80 M/mcL LAB HEMETOLOGY METHOD 11/24/2024 2:24 PM EDT [facility] Hemoglobin 12.6 11.5 - 16.0 g/dL LAB HEMETOLOGY METHOD 11/24/2024 2:24 PM EDT [facility] Hematocrit 39.4 35.0 - 47.0 % LAB HEMETOLOGY METHOD 11/24/2024 2:24 PM EDT [facility] MCV 94.7 79.0 - 98.0 FL LAB HEMETOLOGY METHOD 11/24/2024 2:24 PM EDT [facility] MCH 30.3 27.0 - 32.0 pcg LAB HEMETOLOGY METHOD 11/24/2024 2:24 PM EDT [facility] MCHC 32.0 32.0 - 37.0 g/dL LAB HEMETOLOGY METHOD 11/24/2024 2:24 PM EDT [facility] RDW 13.3 11.0 - 15.0 % LAB HEMETOLOGY METHOD 11/24/2024 2:24 PM EDT [facility] Platelets 286 130 - 400 K/mcL LAB HEMETOLOGY METHOD 11/24/2024 2:24 PM EDT [facility] MPV 11.0 7.0 - 11.0 FL LAB HEMETOLOGY METHOD 11/24/2024 2:24 PM EDT [facility] NRBC 0.0 <1.0 % LAB HEMETOLOGY METHOD 11/24/2024 2:24 PM EDT [facility] NRBC Absolute 0.00 <0.10 K/mcL LAB HEMETOLOGY METHOD 11/24/2024 2:24 PM EDT [facility] Blood Venous blood specimen / Unknown Venipuncture / Unknown 11/24/2024 6:10 AM EDT 11/24/2024 11:09 AM EDT us Светлана Ball MD LAB BLOOD ORDERABLES Fin al Result [facility] [address] [place] [address], documented in this encounter Visit Diagnoses Diagnosis Essential (primary) hypertension Unspecified essential hypertension documented in this encounter Care Teams Auto Mechanics Instructor Relationship Specialty Start Date End Date Светлана Ball MD [address] [phone] PCP - General Family Medicine 11/04/24 documented as of this encounter
--- OUTSIDE RECORDS SUMMARY | 2025-06-02 14:47 | XMS_ITS | Encounter Summary ---
Author Organization [employer] Address [address] [place] [address] Care Team Providers Care Retouching Operator Name Role Phone Светлана Ball MD Primary Care Provider + Encounter Details Date Type Department Care Team (Late st Contact Info) Description 01/04/2025 Lab Requisition [facility] - Main Lab 299 [facility] [place] [address] Светлана Ball MD 819 [facility] 1 [place] [address] Unspecified sequelae of cerebral infarction; [...] Associated Diagnosis Comments COMPLETE BLOOD COUNT Routine 01/05/2025 9:12 AM EDT Unspecified sequelae of cerebral infarction Essential (primary) hypertension COMPREHENSIVE METABOLIC PANEL Routine 01/05/2025 9:12 AM EDT Unspecified sequelae of cerebral infarction Essential (primary) hypertension documented in this encounter Results * (ABNORMAL) Comprehensive metabolic panel (01/05/2025 9:12 AM EDT) [facility] Signature Sodium 139 133 - 145 mmol/L LAB CHEMISTRY METHOD 01/05/2025 2:10 PM [facility] Potassium 4.5 3.5 - 5.5 mmol/L LAB CHEMISTRY METHOD 01/05/2025 2:10 PM [facility] Chloride 104 96 - 110 mmol/L LAB CHEMISTRY METHOD 01/05/2025 2:10 PM [facility] CO2 27 21 - 32 mmol/L LAB CHEMISTRY METHOD 01/05/2025 2:10 PM [facility] Anion Gap 8 3 - 11 LAB CHEMISTRY METHOD 01/05/2025 2:10 PM [facility] Glucose 98 70 - 100 mg/dL LAB CHEMISTRY METHOD 01/05/2025 2:10 PM [facility] BUN 16 5 - 25 mg/dL LAB CHEMISTRY METHOD 01/05/2025 2:10 PM [facility] Creatinine 0.49(L) 0.50 - 1.10 mg/dL LAB CHEMISTRY METHOD 01/05/2025 2:10 PM [facility] eGFR 91 >=60 mL/min/1. 73m2 LAB CHEMISTRY METHOD 01/05/2025 2:10 PM [facility] Comment:Calculation based on the Chronic Kidney Disease Epidemiology Collaboration (CKD-EPI) equation refit without adjustment for race. BUN/Creatinine Ratio 32.7 LAB CHEMISTRY METHOD 01/05/2025 2:10 PM [facility] Calcium 9.0 8.5 - 10.5 mg/dL LAB CHEMISTRY METHOD 01/05/2025 2:10 PM [facility] AST (SGOT) 19 10 - 42 unit/L LAB CHEMISTRY METHOD 01/05/2025 2:10 PM [facility] ALT (SGPT) 26 10 - 60 unit/L LAB CHEMISTRY METHOD 01/05/2025 2:10 PM [facility] Alkaline Phosphatase 104 42 - 121 unit/L LAB CHEMISTRY METHOD 01/05/2025 2:10 PM EDT [facility] Total Protein 5.9(L) 6.0 - 8.0 g/dL LAB CHEMISTRY METHOD 01/05/2025 2:10 PM EDT [facility] Albumin 3.1(L) 3.2 - 5.0 g/dL LAB CHEMISTRY METHOD 01/05/2025 2:10 PM EDT [facility] Total Bilirubin 0.4 0.0 - 1.4 mg/dL LAB CHEMISTRY METHOD 01/05/2025 2:10 PM EDT [facility] Blood Venous blood specimen / Unknown Venipuncture / Unknown 01/05/2025 9:12 AM EDT 01/05/2025 11:22 AM EDT us Светлана Ball MD LAB BLOOD ORDERABLES Fin al Result [facility] [address] [place] [address], * Complete blood count (01/05/2025 9:12 AM EDT) WBC 6.0 4.8 - 10.8 K/mcL LAB HEMETOLOGY METHOD 01/05/2025 12:34 PM EDT [facility] RBC 3.80 3.80 - 4.80 M/mcL LAB HEMETOLOGY METHOD 01/05/2025 12:34 PM EDT [facility] Hemoglobin 11.9 11.5 - 16.0 g/dL LAB HEMETOLOGY METHOD 01/05/2025 12:34 PM EDT [facility] Hematocrit 36.2 35.0 - 47.0 % LAB HEMETOLOGY METHOD 01/05/2025 12:34 PM EDT [facility] MCV 95.8 79.0 - 98.0 FL LAB HEMETOLOGY METHOD 01/05/2025 12:34 PM EDT [facility] MCH 31.5 27.0 - 32.0 pcg LAB HEMETOLOGY METHOD 01/05/2025 12:34 PM EDT [facility] MCHC 32.9 32.0 - 37.0 g/dL LAB HEMETOLOGY METHOD 01/05/2025 12:34 PM EDT [facility] RDW 12.8 11.0 - 15.0 % LAB HEMETOLOGY METHOD 01/05/2025 12:34 PM EDT [facility] Platelets 250 130 - 400 K/mcL LAB HEMETOLOGY METHOD 01/05/2025 12:34 PM EDT [facility] MPV 10.6 7.0 - 11.0 FL LAB HEMETOLOGY METHOD 01/05/2025 12:34 PM EDT [facility] NRBC 0.0 <1.0 % LAB HEMETOLOGY METHOD 01/05/2025 12:34 PM EDT [facility] NRBC Absolute 0.00 <0.10 K/mcL LAB HEMETOLOGY METHOD 01/05/2025 12:34 PM EDT [facility] Blood Venous blood specimen / Unknown Venipuncture / Unknown 01/05/2025 9:12 AM EDT 01/05/2025 11:22 AM EDT us Светлана Ball MD LAB BLOOD ORDERABLES Fin al Result [facility] [address] [place] [address], [place] [phone] documented in this encounter Visit Diagnoses Diagnosis Unspecified sequelae of cerebral infarction Essential (primary) hypertension Unspecified essential hypertension documented in this encounter Care Teams Retouching Operator Relationship Specialty Start Date End Date Светлана Ball MD [address] [place] [phone] PCP - General Family Medicine 11/04/24 documented as of this encounter
--- OUTSIDE RECORDS SUMMARY | 2025-06-02 14:47 | XMS_ITS | Encounter Summary ---
Author Organization [employer] Address [address] [place] [address] Care Team Providers Care Farm Crew Member Name Role Phone Светлана Ball MD Primary Care Provider + Encounter Details Date Type Department Care Team (Late st Contact Info) Description 12/05/2024 Lab Requisition [facility] - Main Lab 299 [facility] [place] [place] [address] Светлана Ball MD [address] [phone] Weakness Social History Tobacco Use Types Packs/Day Years [...] on file documented as of this encounter Visit Diagnoses Diagnosis Weakness Other malaise and fatigue documented in this encounter Care Teams Farm Crew Member Relationship Specialty Start Date End Date Светлана Ball MD [address] [phone] PCP - General Family Medicine 11/04/24 documented as of this encounter
--- OUTSIDE RECORDS SUMMARY | 2025-06-02 14:47 | XMS_ITS | Encounter Summary ---
Author Organization [employer] Address [address] [place] [address] Care Team Providers Care Sat Tutor Name Role Phone Светлана Ball MD Primary Care Provider + Encounter Details Date Type Department Care Team (Late st Contact Info) Description 12/26/2024 Lab Requisition [facility] - Main Lab 299 [facility] [place] [address] Светлана Ball MD [address] [facility] 1 [place] [address] Unspecified sequelae of cerebral infarction; [...] Associated Diagnosis Comments COMPLETE BLOOD COUNT Routine 12/29/2024 7:49 AM EDT Unspecified sequelae of cerebral infarction Essential (primary) hypertension COMPREHENSIVE METABOLIC PANEL Routine 12/29/2024 7:49 AM EDT Unspecified sequelae of cerebral infarction Essential (primary) hypertension documented in this encounter Results * (ABNORMAL) Comprehensive metabolic panel (12/29/2024 7:49 AM EDT) Sodium 137 133 - 145 mmol/L LAB CHEMISTRY METHOD 12/29/2024 3:02 PM [facility] Potassium 4.7 3.5 - 5.5 mmol/L LAB CHEMISTRY METHOD 12/29/2024 3:02 PM [facility] Chloride 105 96 - 110 mmol/L LAB CHEMISTRY METHOD 12/29/2024 3:02 PM [facility] CO2 28 21 - 32 mmol/L LAB CHEMISTRY METHOD 12/29/2024 3:02 PM [facility] Anion Gap 4 3 - 11 LAB CHEMISTRY METHOD 12/29/2024 3:02 PM [facility] Glucose 71 70 - 100 mg/dL LAB CHEMISTRY METHOD 12/29/2024 3:02 PM [facility] BUN 18 5 - 25 mg/dL LAB CHEMISTRY METHOD 12/29/2024 3:02 PM [facility] Creatinine 0.43(L) 0.50 - 1.10 mg/dL LAB CHEMISTRY METHOD 12/29/2024 3:02 PM [facility] eGFR 94 >=60 mL/min/1. 73m2 LAB CHEMISTRY METHOD 12/29/2024 3:02 PM [facility] Comment:Calculation based on the Chronic Kidney Disease Epidemiology Collaboration (CKD-EPI) equation refit without adjustment for race. BUN/Creatinine Ratio 41.9 LAB CHEMISTRY METHOD 12/29/2024 3:02 PM [facility] Calcium 9.0 8.5 - 10.5 mg/dL LAB CHEMISTRY METHOD 12/29/2024 3:02 PM [facility] AST (SGOT) 23 10 - 42 unit/L LAB CHEMISTRY METHOD 12/29/2024 3:02 PM [facility] ALT (SGPT) 30 10 - 60 unit/L LAB CHEMISTRY METHOD 12/29/2024 3:02 PM [facility] Alkaline Phosphatase 103 42 - 121 unit/L LAB CHEMISTRY METHOD 12/29/2024 3:[address] [facility] Total Protein 5.8(L) 6.0 - 8.0 g/dL LAB CHEMISTRY METHOD 12/29/2024 3:02 PM [facility] Albumin 3.1(L) 3.2 - 5.0 g/dL LAB CHEMISTRY METHOD 12/29/2024 3:[address] [facility] Total Bilirubin 0.5 0.0 - 1.4 mg/dL LAB CHEMISTRY METHOD 12/29/2024 3:[address] [facility] Blood Venous blood specimen / Unknown Venipuncture / Unknown 12/29/2024 7:49 AM EDT 12/29/2024 10:10 AM EDT us Светлана Ball MD LAB BLOOD ORDERABLES Fin al Result [facility] [address] [place] [address], * (ABNORMAL) Complete blood count (12/29/2024 7:49 AM EDT) WBC 4.6(L) 4.8 - 10.8 K/mcL LAB HEMETOLOGY METHOD 12/29/2024 12:[address] [facility] RBC 3.80 3.80 - 4.80 M/mcL LAB HEMETOLOGY METHOD 12/29/2024 12:[address] [facility] Hemoglobin 11.8 11.5 - 16.0 g/dL LAB HEMETOLOGY METHOD 12/29/2024 12:[address] [facility] Hematocrit 36.4 35.0 - 47.0 % LAB HEMETOLOGY METHOD 12/29/2024 12:[address] [facility] MCV 95.8 79.0 - 98.0 FL LAB HEMETOLOGY METHOD 12/29/2024 12:[address] [facility] MCH 31.1 27.0 - 32.0 pcg LAB HEMETOLOGY METHOD 12/29/2024 12:[address] [facility] MCHC 32.4 32.0 - 37.0 g/dL LAB HEMETOLOGY METHOD 12/29/2024 12:[address] [facility] RDW 13.1 11.0 - 15.0 % LAB HEMETOLOGY METHOD 12/29/2024 12:[address] [facility] Platelets 246 130 - 400 K/mcL LAB HEMETOLOGY METHOD 12/29/2024 12:[address] [facility] MPV 10.8 7.0 - 11.0 FL LAB HEMETOLOGY METHOD 12/29/2024 12:[address] [facility] NRBC 0.0 <1.0 % LAB HEMETOLOGY METHOD 12/29/2024 12:[address] [facility] NRBC Absolute 0.00 <0.10 K/mcL LAB HEMETOLOGY METHOD 12/29/2024 12:[address] [facility] Blood Venous blood specimen / Unknown Venipuncture / Unknown 12/29/2024 7:49 AM EDT 12/29/2024 10:12 AM EDT us Светлана Ball MD LAB BLOOD ORDERABLES Fin al Result [facility] [address] [place] [address], documented in this encounter Visit Diagnoses Diagnosis Unspecified sequelae of cerebral infarction Essential (primary) hypertension Unspecified essential hypertension documented in this encounter Care Teams Sat Tutor Relationship Specialty Start Date End Date Светлана Ball MD [address] [place] [phone] PCP - General Family Medicine 11/04/24 documented as of this encounter
--- OUTSIDE RECORDS SUMMARY | 2025-06-02 14:47 | XMS_ITS | Encounter Summary ---
Author Organization [employer] Address [address] [place] [address] Care Team Providers Care Revenue Accounting Manager Name Role Phone Светлана Ball MD Primary Care Provider + Encounter Details Date Type Department Care Team (Late st Contact Info) Description 11/27/2024 Lab Requisition [facility] - Main Lab 299 [facility] [place] [address] Светлана Ball MD [address] [facility] 1 [place] [address] Essential (primary) hypertension; Unspecified sequelae of cerebral infarction; Vitamin B12 deficiency anemia, unspecified Social History Tobacco Use Types Packs/Day Years [...] Procedure Name Priority Date/Time Associated Diagnosis Comments VITAMIN B12 AND FOLATE Routine 11/27/2024 4:54 AM EDT Essential (primary) hypertension Unspecified sequelae of cerebral infarction Vitamin B12 deficiency anemia, unspecified COMPLETE BLOOD COUNT Routine 11/27/2024 4:54 AM EDT Essential (primary) hypertension Unspecified sequelae of cerebral infarction Vitamin B12 deficiency anemia, unspecified MAGNESIUM Routine 11/27/2024 4:54 AM EDT Essential (primary) hypertension Unspecified sequelae of cerebral infarction Vitamin B12 deficiency anemia, unspecified BASIC METABOLIC PANEL Routine 11/27/2024 4:54 AM EDT Essential (primary) hypertension Unspecified sequelae of cerebral infarction Vitamin B12 deficiency anemia, unspecified documented in this encounter Results * Magnesium (11/27/2024 4:54 AM EDT) [facility] Magnesium 2.2 1.9 - 2.6 mg/dL LAB CHEMISTRY METHOD 11/27/2024 9:50 AM EDT [facility] Blood Venous blood specimen / Unknown Venipuncture / Unknown 11/27/2024 4:54 AM EDT 11/27/2024 8:43 AM EDT Светлана Ball MD LAB BLOOD ORDERABLES Fin al Result Performing Organization Address [facility] de Phone Number [facility] [address] [place] [address], [place] [phone] * (ABNORMAL) Vitamin B12 and folate (11/27/2024 4:54 AM EDT) [facility] Vitamin B-12 >2,000(H) 250 - 900 pcg/mL LAB CHEMISTRY METHOD 11/27/2024 10:17 AM EDT [facility] Folate 12.3 2.8 - 17.0 ng/ml LAB CHEMISTRY METHOD 11/27/2024 10:17 AM EDT [facility] Blood Venous blood specimen / Unknown Venipuncture / Unknown 11/27/2024 4:54 AM EDT 11/27/2024 8:43 AM EDT Светлана Ball MD LAB BLOOD ORDERABLES Fin al Result Performing Organization Address [facility]/ZIP Co de Phone Number [facility] [address] [place] [address], [place] [phone] * (ABNORMAL) Basic metabolic panel (11/27/2024 4:54 AM EDT) Sodium 134 133 - 145 mmol/L LAB CHEMISTRY METHOD 11/27/2024 9:50 AM [facility] Potassium 4.7 3.5 - 5.5 mmol/L LAB CHEMISTRY METHOD 11/27/2024 9:50 AM [facility] Chloride 100 96 - 110 mmol/L LAB CHEMISTRY METHOD 11/27/2024 9:50 AM [facility] CO2 30 21 - 32 mmol/L LAB CHEMISTRY METHOD 11/27/2024 9:50 AM [facility] Anion Gap 4 3 - 11 LAB CHEMISTRY METHOD 11/27/2024 9:50 AM [facility] Glucose 81 70 - 100 mg/dL LAB CHEMISTRY METHOD 11/27/2024 9:50 AM [facility] BUN 14 5 - 25 mg/dL LAB CHEMISTRY METHOD 11/27/2024 9:50 AM [facility] Creatinine 0.42(L) 0.50 - 1.10 mg/dL LAB CHEMISTRY METHOD 11/27/2024 9:50 AM [facility] eGFR 94 >=60 mL/min/1. 73m2 LAB CHEMISTRY METHOD 11/27/2024 9:50 AM [facility] Comment:Calculation based on the Chronic Kidney Disease Epidemiology Collaboration (CKD-EPI) equation refit without adjustment for race. BUN/Creatinine Ratio 33.3 LAB CHEMISTRY METHOD 11/27/2024 9:50 AM [facility] Calcium 9.1 8.5 - 10.5 mg/dL LAB CHEMISTRY METHOD 11/27/2024 9:50 AM [facility] Blood Venous blood specimen / Unknown Venipuncture / Unknown 11/27/2024 4:54 AM EDT 11/27/2024 8:43 AM EDT us Светлана Ball MD LAB BLOOD ORDERABLES Fin al Result [facility] [address] [place] [address], * (ABNORMAL) Complete blood count (11/27/2024 4:54 AM EDT) WBC 4.2(L) 4.8 - 10.8 K/mcL LAB HEMETOLOGY METHOD 11/27/2024 9:05 AM EDT [facility] RBC 4.10 3.80 - 4.80 M/mcL LAB HEMETOLOGY METHOD 11/27/2024 9:05 AM EDT [facility] Hemoglobin 12.5 11.5 - 16.0 g/dL LAB HEMETOLOGY METHOD 11/27/2024 [facility] Hematocrit 38.7 35.0 - 47.0 % LAB HEMETOLOGY METHOD 11/27/2024 9:05 AM EDT [facility] MCV 94.9 79.0 - 98.0 FL LAB HEMETOLOGY METHOD 11/27/2024 9:05 AM EDT [facility] MCH 30.6 27.0 - 32.0 pcg LAB HEMETOLOGY METHOD 11/27/2024 [facility] MCHC 32.3 32.0 - 37.0 g/dL LAB HEMETOLOGY METHOD 11/27/2024 9:05 AM EDT [facility] RDW 13.1 11.0 - 15.0 % LAB HEMETOLOGY METHOD 11/27/2024 9:[facility] Platelets 245 130 - 400 K/mcL LAB HEMETOLOGY METHOD 11/27/2024 9:[facility] MPV 11.1(H) 7.0 - 11.0 FL LAB HEMETOLOGY METHOD 11/27/2024 9:05 AM EDT [facility] NRBC 0.0 <1.0 % LAB HEMETOLOGY METHOD 11/27/2024 9:05 AM EDT [facility] NRBC Absolute 0.00 <0.10 K/mcL LAB HEMETOLOGY METHOD 11/27/2024 9:05 AM EDT [facility] Blood Venous blood specimen / Unknown Venipuncture / Unknown 11/27/2024 4:54 AM EDT 11/27/2024 8:43 AM EDT us Светлана Ball MD LAB BLOOD ORDERABLES Fin al Result [facility] [address] [place] [address], documented in this encounter Visit Diagnoses Diagnosis Essential (primary) hypertension Unspecified essential hypertension Unspecified sequelae of cerebral infarction Vitamin B12 deficiency anemia, unspecified documented in this encounter Care Teams Revenue Accounting Manager Relationship Specialty Start Date End Date Светлана Ball MD [address] [place] [phone] PCP - General Family Medicine 11/04/24 documented as of this encounter
--- OUTSIDE RECORDS SUMMARY | 2025-06-02 14:47 | XMS_ITS | Encounter Summary ---
Author Organization [employer] Address [address] [place] [address] Care Team Providers Care Tool Distributor Name Role Phone Светлана Ball MD Primary Care Provider + Encounter Details Date Type Department Care Team (Late st Contact Info) Description 12/05/2024 Lab Requisition [facility] - Main Lab 299 [facility] [place] [address] Светлана Ball MD [address] [facility] 1 [place] [address] Unspecified sequelae of cerebral infarction; [...] Associated Diagnosis Comments COMPLETE BLOOD COUNT Routine 12/08/2024 6:10 AM EDT Unspecified sequelae of cerebral infarction Essential (primary) hypertension MAGNESIUM Routine 12/08/2024 6:10 AM EDT Unspecified sequelae of cerebral infarction Essential (primary) hypertension COMPREHENSIVE METABOLIC PANEL Routine 12/08/2024 6:10 AM EDT Unspecified sequelae of cerebral infarction Essential (primary) hypertension documented in this encounter Results * Magnesium (12/08/2024 6:10 AM EDT) Magnesium 2.0 1.9 - 2.6 mg/dL LAB CHEMISTRY METHOD 12/08/2024 12:47 PM [facility] Blood Venous blood specimen / Unknown Venipuncture / Unknown 12/08/2024 6:10 AM EDT 12/08/2024 11:23 AM EDT us Светлана Ball MD LAB BLOOD ORDERABLES Fin al Result [facility] [address] [place] [address], * (ABNORMAL) Comprehensive metabolic panel (12/08/2024 6:10 AM EDT) Pathologist [facility] Sodium 141 133 - 145 mmol/L LAB CHEMISTRY METHOD 12/08/2024 12:47 PM [facility] Potassium 4.6 3.5 - 5.5 mmol/L LAB CHEMISTRY METHOD 12/08/2024 12:47 PM [facility] Chloride 107 96 - 110 mmol/L LAB CHEMISTRY METHOD 12/08/2024 12:47 PM [facility] CO2 27 21 - 32 mmol/L LAB CHEMISTRY METHOD 12/08/2024 12:47 PM [facility] Anion Gap 7 3 - 11 LAB CHEMISTRY METHOD 12/08/2024 12:47 PM [facility] Glucose 67(L) 70 - 100 mg/dL LAB CHEMISTRY METHOD 12/08/2024 12:47 PM [facility] BUN 19 5 - 25 mg/dL LAB CHEMISTRY METHOD 12/08/2024 12:47 PM [facility] Creatinine 0.45(L) 0.50 - 1.10 mg/dL LAB CHEMISTRY METHOD 12/08/2024 12:47 PM [facility] eGFR 93 >=60 mL/min/1. 73m2 LAB CHEMISTRY METHOD 12/08/2024 12:47 PM [facility] Comment:Calculation based on the Chronic Kidney Disease Epidemiology Collaboration (CKD-EPI) equation refit without adjustment for race. BUN/Creatinine Ratio 42.2 LAB CHEMISTRY METHOD 12/08/2024 12:47 PM [facility] Calcium 8.2(L) 8.5 - 10.5 mg/dL LAB CHEMISTRY METHOD 12/08/2024 12:47 PM [facility] AST (SGOT) 16 10 - 42 unit/L LAB CHEMISTRY METHOD 12/08/2024 12:47 PM [facility] ALT (SGPT) 20 10 - 60 unit/L LAB CHEMISTRY METHOD 12/08/2024 12:47 PM [facility] Alkaline Phosphatase 94 42 - 121 unit/L LAB CHEMISTRY METHOD 12/08/2024 12:47 PM [facility] Total Protein 5.1(L) 6.0 - 8.0 g/dL LAB CHEMISTRY METHOD 12/08/2024 12:47 PM [facility] Albumin 2.6(L) 3.2 - 5.0 g/dL LAB CHEMISTRY METHOD 12/08/2024 12:47 PM [facility] Total Bilirubin 0.5 0.0 - 1.4 mg/dL LAB CHEMISTRY METHOD 12/08/2024 12:47 PM [facility] Blood Venous blood specimen / Unknown Venipuncture / Unknown 12/08/2024 6:10 AM EDT 12/08/2024 11:23 AM EDT us Светлана Ball MD LAB BLOOD ORDERABLES Fin al Result [facility] [address] [place] [address], * (ABNORMAL) Complete blood count (12/08/2024 6:10 AM EDT) [facility] WBC 4.0(L) 4.8 - 10.8 K/mcL LAB HEMETOLOGY METHOD 12/08/2024 12:13 PM [facility] RBC 3.60(L) 3.80 - 4.80 M/mcL LAB HEMETOLOGY METHOD 12/08/2024 [facility] Hemoglobin 11.0(L) 11.5 - 16.0 g/dL LAB HEMETOLOGY METHOD 12/08/2024 12:13 PM [facility] Hematocrit 34.9(L) 35.0 - 47.0 % LAB HEMETOLOGY METHOD 12/08/2024 12:13 PM [facility] MCV 98.0 79.0 - 98.0 FL LAB HEMETOLOGY METHOD 12/08/2024 12:13 PM [facility] MCH 30.9 27.0 - 32.0 pcg LAB HEMETOLOGY METHOD 12/08/2024 12:13 PM [facility] MCHC 31.5(L) 32.0 - 37.0 g/dL LAB HEMETOLOGY METHOD 12/08/2024 12:13 PM [facility] RDW 13.2 11.0 - 15.0 % LAB HEMETOLOGY METHOD 12/08/2024 12:13 PM [facility] Platelets 238 130 - 400 K/mcL LAB HEMETOLOGY METHOD 12/08/2024 12:13 PM [facility] MPV 10.9 7.0 - 11.0 FL LAB HEMETOLOGY METHOD 12/08/2024 12:13 PM [facility] NRBC 0.0 <1.0 % LAB HEMETOLOGY METHOD 12/08/2024 12:13 PM [facility] NRBC Absolute 0.00 <0.10 K/mcL LAB HEMETOLOGY METHOD 12/08/2024 12:13 PM EDT [facility] Blood Venous blood specimen / Unknown Venipuncture / Unknown 12/08/2024 6:10 AM EDT 12/08/2024 11:23 AM EDT us Светлана Blal MD LAB BLOOD ORDERABLES Fin al Result [facility] [address] [place] [address], documented in this encounter Visit Diagnoses Diagnosis Unspecified sequelae of cerebral infarction Essential (primary) hypertension Unspecified essential hypertension documented in this encounter Care Teams Tool Distributor Relationship Specialty Start Date End Date Светлана Ball MD [address] [place] [id number] PCP - General Family Medicine 11/04/24 documented as of this encounter
--- OUTSIDE RECORDS SUMMARY | 2025-06-02 14:47 | XMS_ITS | Clinical Summary ---
Author Organization 299 [facility] Address [address] [place] [phone] Phone Care Team Providers Care Hands Parter Name Role Phone Elder, Светлана Mauricio MD Primary Care Provider + Allergies Active Allergy Reactions Criticality Noted Date Comments Lisinopril 11/24/2024 Medications irbesartan (AVAPRO) 75 mg tablet Take 0.5 tablets (37.5 mg total) by mouth 1 (one) time each day. 10/08/2024 Active aspirin 81 mg EC tablet Take 1 tablet (81 mg total) by mouth 1 (one) time each day. Active baclofen (LIORESAL) 5 mg tablet Take 0.5 tablets (2.5 mg total) by mouth 3 (three) times a day. Hold for lethargy 11/26/2024 Active cyanocobalamin (VITAMIN B-12) 1,000 mcg/mL injection 1000 mcg IM daily x 5 then 1000 mcg IM once weekly x 4 11/27/2024 Active atorvastatin (LIPITOR) 20 mg tablet Take 1 tablet (20 mg total) by mouth at bedtime. 11/26/2024 Active Active Problems Problem Noted Date Diagnosed Date Left leg weakness 11/26/2024 Social History Tobacco Use Types Packs/Day Years Used Date Smoking Tobacco: Unknown Tobacco Cessation:Counseling Given: No Alcohol Use Standard Drinks/Week Comments Not Currently [...] on file Sexual Orientation Not on file Last Filed Vital Signs Vital Sign Reading Time Taken Comments Blood Pressure 149/54 11/26/2024 7:36 AM EDT Pulse 63 11/26/2024 7:36 AM EDT Temperature 36.1 C (97 F) 11/26/2024 7:36 AM EDT Respiratory Rate 18 11/26/2024 7:36 AM EDT Oxygen Saturation 100% 11/26/2024 7:36 AM EDT Inhaled Oxygen Concentration - - Weight 61.2 kg (135 lb) 11/24/2024 12:49 PM EDT Height 157.5 cm (5' 2 ) 11/24/2024 12:49 PM EDT Body Mass Index 24.69 11/24/2024 12:49 PM EDT Plan of Treatment Health Maintenance Due Date Last Done Comments DTaP,Tdap,and Td Vaccines (1 - Tdap) 01/07/1954 Pneumococcal Vaccine: 50+ Years (1 of 1 - PCV) 01/07/1986 Zoster Vaccines (1 of 2) 01/07/1986 RSV Immunization Adult Patients (1 - 1-dose 75+ series) 01/07/2011 Depression Screening 06/18/2024 Medicare Annual Wellness Visit 11/04/2024 Osteoporosis Screening (Bone Density Screening) 11/04/2024 Social Influencers of Health Screening 11/04/2024 COVID-19 Vaccine (2024- season) 2025 09/30/2024, 03/27/2024, 09/26/2023, Additional history exists Influenza Vaccine (#1) 2025 , 03/14/2023, 04/06/2022, Additional history exists Falls Risk Assessment 11/26/2025 11/26/2024 Cholesterol Screening (Lipid Panel) 11/24/2029 11/24/2024 HIB Vaccines Aged Out No longer eligi ble based on patient's age to complete this topic HPV Vaccines Aged Out No longer eligi ble based on patient's age to complete this topic Hepatitis A Vaccines Aged Out No long er eligible based on patient's age to complete this topic Hepatitis B Vaccines Aged Out No long er eligible based on patient's age to complete this topic IPV Vaccines Aged Out No longer eligi ble based on patient's age to complete this topic MMR Vaccines Aged Out No longer eligi ble based on patient's age to complete this topic Meningococcal ACWY Vaccine Aged Out N o longer eligible based on patient's age to complete this topic Meningococcal B Vaccine Aged Out No l onger eligible based on patient's age to complete this topic RSV Immunization Patients Under 20 months Aged Out No longer eligible based on patient's age to complete this topic Varicella Vaccines Aged Out No longer eligible based on patient's age to complete this topic Procedures Procedure Name Priority Date/Time Associated Diagnosis Comments LIPID PANEL WITH REFLEX TO DIRECT LDL Add-On 11/24/2024 2:03 PM EDT from Last 3 Months or Most Recently Relevant to Health Maintenance Results * (ABNORMAL) Lipid panel with reflex to direct LDL (11/24/2024 2:03 PM EDT) Cholesterol 219(H) 0 - 200 mg/dL LAB CHEMISTRY METHOD 11/24/2024 7:59 PM EDT [facility] Triglycerides 86 0 - 150 mg/dL LAB CHEMISTRY METHOD 11/24/2024 7:59 PM EDT [facility] HDL 93 >=40 mg/dL LAB CHEMISTRY METHOD 11/24/2024 7:59 PM EDT [facility] LDL Calculated 109(H) 0 - 100 mg/dL LAB CHEMISTRY METHOD 11/24/2024 7:59 PM EDT [facility] VLDL Cholesterol [place] 17.2 mg/dL LAB CHEMISTRY METHOD 11/24/2024 7:59 PM EDT [facility] Non HDL Chol. (LDL+VLDL) 126 <145 mg/dL LAB CHEMISTRY METHOD 11/24/2024 7:59 PM EDT [facility] Chol/HDL Ratio 2.4 0.0 - 4.4 LAB CHEMISTRY METHOD 11/24/2024 7:59 PM EDT [facility] Blood Venous blood specimen / Unknown Venipuncture / Unknown 11/24/2024 2:03 PM EDT 11/24/2024 2:07 PM EDT us [facility] LAB BLOOD ORDERABLES Final [facility]u lt [facility] [address] [place] [address], from Last 3 Months or Most Recently Relevant to Health Maintenance Insurance [employer] Advance Directives Documents on File Type Date Recorded Patient Knitter Hand Expl anation Power of Washtub Worker 11/27/2024 1:23 PM POA Advance Directives and Livin g Will 11/27/2024 1:20 PM [facility]OLST * No CPR/Do Not Intubate (Latest Code Status on File) Date Activated Date Inactivated Comments 11/24/2024 7:22 PM 11/26/2024 4:09 PM This code sta tus was ascertained in the following way: Code status discussion: discussion with patient To update the patient's code status, place a code status order. Do not modify or discontinue any currently active code status orders. * Full Code - Default Date Activated Date Inactivated Comments 11/24/2024 5:03 PM 11/24/2024 7:22 PM This is order is used when code status has not been discussed with the patient, or code status is otherwise unknown/unconfirmed To update the patient's code status, place a code status order. Do not modify or discontinue any currently active code status orders. Care Teams Hands Parter Relationship Specialty Start Date End Date Светлана Ball MD [address] [id number] PCP - General Family Medicine 11/04/24
--- OUTSIDE RECORDS SUMMARY | 2025-06-02 14:47 | XMS_ITS | Encounter Summary ---
Author Organization [employer] Address [address] [place] [address] Care Team Providers Care Primary Products Inspectors Name Role Phone Светлана Ball MD Primary Care Provider + Encounter Details Date Type Department Care Team (Late st Contact Info) Description 01/10/2025 Lab Requisition [facility] - Main Lab 299 [facility] [place] [address] Светлана Ball MD 819 [facility] 1 [place] [address] Unspecified sequelae of cerebral infarction; [...] Associated Diagnosis Comments COMPLETE BLOOD COUNT Routine 01/12/2025 9:05 AM EDT Unspecified sequelae of cerebral infarction Essential (primary) hypertension COMPREHENSIVE METABOLIC PANEL Routine 01/12/2025 9:05 AM EDT Unspecified sequelae of cerebral infarction Essential (primary) hypertension documented in this encounter Results * Comprehensive metabolic panel (01/12/2025 9:05 AM EDT) Sodium 136 133 - 145 mmol/L LAB CHEMISTRY METHOD 01/12/2025 12:08 PM [facility] Potassium 4.6 3.5 - 5.5 mmol/L LAB CHEMISTRY METHOD 01/12/2025 12:08 PM [facility] Chloride 104 96 - 110 mmol/L LAB CHEMISTRY METHOD 01/12/2025 12:08 PM [facility] CO2 27 21 - 32 mmol/L LAB CHEMISTRY METHOD 01/12/2025 12:08 PM [facility] Anion Gap 5 3 - 11 LAB CHEMISTRY METHOD 01/12/2025 12:08 PM [facility] Glucose 80 70 - 100 mg/dL LAB CHEMISTRY METHOD 01/12/2025 12:08 PM [facility] BUN 19 5 - 25 mg/dL LAB CHEMISTRY METHOD 01/12/2025 12:08 PM [facility] Creatinine 0.51 0.50 - 1.10 mg/dL LAB CHEMISTRY METHOD 01/12/2025 12:08 PM [facility] eGFR 89 >=60 mL/min/1. 73m2 LAB CHEMISTRY METHOD 01/12/2025 12:08 PM [facility] Comment:Calculation based on the Chronic Kidney Disease Epidemiology Collaboration (CKD-EPI) equation refit without adjustment for race. BUN/Creatinine Ratio 37.3 LAB CHEMISTRY METHOD 01/12/2025 12:08 PM [facility] Calcium 8.6 8.5 - 10.5 mg/dL LAB CHEMISTRY METHOD 01/12/2025 12:08 PM [facility] AST (SGOT) 25 10 - 42 unit/L LAB CHEMISTRY METHOD 01/12/2025 12:08 PM [facility] ALT (SGPT) 28 10 - 60 unit/L LAB CHEMISTRY METHOD 01/12/2025 12:08 PM [facility] Alkaline Phosphatase 111 42 - 121 unit/L LAB CHEMISTRY METHOD 01/12/2025 12:08 PM EDT [facility] Total Protein 6.1 6.0 - 8.0 g/dL LAB CHEMISTRY METHOD 01/12/2025 12:08 PM [facility] Albumin 3.2 3.2 - 5.0 g/dL LAB CHEMISTRY METHOD 01/12/2025 12:08 PM [facility] Total Bilirubin 0.5 0.0 - 1.4 mg/dL LAB CHEMISTRY METHOD 01/12/2025 12:08 PM EDT [facility] Blood Venous blood specimen / Unknown Venipuncture / Unknown 01/12/2025 9:05 AM EDT 01/12/2025 10:41 AM EDT us Светлана Ball MD LAB BLOOD ORDERABLES Fin al Result [facility] [address] [place] [address], * Complete blood count (01/12/2025 9:05 AM EDT) WBC 4.9 4.8 - 10.8 K/mcL LAB HEMETOLOGY METHOD 01/12/2025 11:10 AM T [facility] RBC 3.90 3.80 - 4.80 M/mcL LAB HEMETOLOGY METHOD 01/12/2025 11:10 AM EDT [facility] Hemoglobin 12.0 11.5 - 16.0 g/dL LAB HEMETOLOGY METHOD 01/12/2025 11:10 AM T [facility] Hematocrit 36.1 35.0 - 47.0 % LAB HEMETOLOGY METHOD 01/12/2025 11:10 AM [facility] MCV 93.3 79.0 - 98.0 FL LAB HEMETOLOGY METHOD 01/12/2025 11:10 AM EDT [facility] MCH 31.0 27.0 - 32.0 pcg LAB HEMETOLOGY METHOD 01/12/2025 11:10 AM EDT [facility] MCHC 33.2 32.0 - 37.0 g/dL LAB HEMETOLOGY METHOD 01/12/2025 11:10 AM EDT [facility] RDW 12.7 11.0 - 15.0 % LAB HEMETOLOGY METHOD 01/12/2025 11:10 AM EDT [facility] Platelets 269 130 - 400 K/mcL LAB HEMETOLOGY METHOD 01/12/2025 11:10 AM EDT [facility] MPV 10.3 7.0 - 11.0 FL LAB HEMETOLOGY METHOD 01/12/2025 11:10 AM EDT [facility] NRBC 0.0 <1.0 % LAB HEMETOLOGY METHOD 01/12/2025 11:10 AM EDT [facility] NRBC Absolute 0.00 <0.10 K/mcL LAB HEMETOLOGY METHOD 01/12/2025 11:10 AM EDT [facility] Blood Venous blood specimen / Unknown Venipuncture / Unknown 01/12/2025 9:05 AM EDT 01/12/2025 10:41 AM EDT Светлана Ball MD LAB BLOOD ORDERABLES Fin al Result [facility] [address] [place] [address], documented in this encounter Visit Diagnoses Diagnosis Unspecified sequelae of cerebral infarction Essential (primary) hypertension Unspecified essential hypertension documented in this encounter Care Teams Primary Products Inspectors Relationship Specialty Start Date End Date Светлана Ball MD [address] [address] PCP - General Family Medicine 11/04/24 documented as of this encounter
--- OUTSIDE RECORDS SUMMARY | 2025-06-02 14:47 | XMS_ITS | Patient Health Record ---
Author Organization [facility] Address [address] [place] [address] Care Team Providers Care Architect Internship Name Role Phone Eliza (RETIRED) Roger JOSEPH Primary Care Provide r Yared Sauceda Jr Unavailable Reason For Referral No Information Medications Medication SIG (Take, Route, Frequency, Duration) Notes Start Date End Date Status Diphenoxylate-Atrop ine 2.5-0.025 MG Tablet TAKE 1 TABLET BY MOUTH FOUR TIMES DAILY NEEDED; Duration: 90 HAVE PATIENT CALL FOR APPOINTMENT 04/04/2021 Active Lomotil 2.5-0.025 MG Tablet 1 tablet as needed Orally Four times a day; Duration: 90 days Active Magnesium 250 MG Tablet 1 tablet with a meal Orally Once a day Active Vitamin B91-Rfuin Acid 500-400 MCG Tablet Orally Active Vitamin D 2000 UNIT Tablet 1 tablet Orally Once a day Active Pepcid 20 MG Tablet 1 tablet at bedtime Orally Once a day Active Aspir-81 81 MG Tablet Delayed Release 1 tablet Orally Once a day Active Irbesartan 75 MG Tablet 1 tablet Orally Once a day Active Social History Social History Additional Details Category Social Info Options Details Miscellaneous: Marital status: Occupation: retired Problems Problem Type SNOMED Code ICD Code Onset Dates Problem Status W/U Status Risk Notes Problem Irritable bowel syndrome with diarrhea (231489610) Irritable bowel syndrome with diarrhea (K58.0) Active confirmed Problem Gastroesophageal reflux disease without esophagitis (675175778) Gastroesophageal reflux disease without esophagitis (K21.9) Active confirmed Plan Of Treatment No Information Insurance Providers Payer Name Payer Address Payer Phone Subscriber Number Group Number Insured Name Patient Relationship to Insured Coverage Start Date Coverage End Date [facility] [address] [facility] [phone] [id number] PAVEL MENDOZA Self - patient is the insured Medical (General) History Medical History History ICD Code colon and egd 11-04-2004 history of irritable bowel syndrome reflux osteopenia degenerative joint disease Denies CT,DM,Lung disease,renal disease stroke 03/2014 Surgical History Surgery Date(Month/Year) breast biopsy cyst removal from breast
--- OUTSIDE RECORDS SUMMARY | 2025-06-02 14:47 | XMS_ITS | Encounter Summary ---
Author Organization [employer] Address [address] [place] [address] Care Team Providers Care Director Compliance Name Role Phone Светлана Ball MD Primary Care Provider + Encounter Details Date Type Department Care Team (Late st Contact Info) Description 11/04/2024 Lab Requisition [facility] - Main Lab 299 [facility] [place] [address] Светлана Ball MD [address] [address] Essential (primary) hypertension; Hyperlipidemia, unspecified Social History Tobacco Use Types Packs/Day Years Used Date Smoking Tobacco: Never Assessed Comments Unknown Sex and Gender Information Value Date Recorded Sex Assigned at Not on file Legal Sex Female 9:21 AM EDT Gender Identity Not on file Sexual Orientation Not on file documented as of this encounter Plan of Treatment Not on file documented as of this encounter Procedures Procedure Name Priority Date/Time Associated Diagnosis Comments COMPLETE BLOOD COUNT Routine 11/04/2024 6:14 AM EDT Essential (primary) hypertension Hyperlipidemia, unspecified COMPREHENSIVE METABOLIC PANEL Routine 11/04/2024 6:14 AM EDT Essential (primary) hypertension Hyperlipidemia, unspecified documented in this encounter Results * Comprehensive metabolic panel (11/04/2024 6:14 AM EDT) Sodium 140 133 - 145 mmol/L LAB CHEMISTRY METHOD 11/04/2024 10:24 AM EDT [facility] Potassium 4.0 3.5 - 5.5 mmol/L LAB CHEMISTRY METHOD 11/04/2024 10:24 AM [facility] Chloride 105 96 - 110 mmol/L LAB CHEMISTRY METHOD 11/04/2024 10:24 AM [facility] CO2 27 21 - 32 mmol/L LAB CHEMISTRY METHOD 11/04/2024 10:24 AM [facility] Anion Gap 8 3 - 11 LAB CHEMISTRY METHOD 11/04/2024 10:24 AM [facility] Glucose 89 70 - 100 mg/dL LAB CHEMISTRY METHOD 11/04/2024 10:24 AM [facility] BUN 14 5 - 25 mg/dL LAB CHEMISTRY METHOD 11/04/2024 10:24 AM [facility] Creatinine 0.50 0.50 - 1.10 mg/dL LAB CHEMISTRY METHOD 11/04/2024 10:24 AM [facility] eGFR 90 >=60 mL/min/1. 73m2 LAB CHEMISTRY METHOD 11/04/2024 10:24 AM [facility] Comment:Calculation based on the Chronic Kidney Disease Epidemiology Collaboration (CKD-EPI) equation refit without adjustment for race. BUN/Creatinine Ratio 28.0 LAB CHEMISTRY METHOD 11/04/2024 10:24 AM [facility] Calcium 8.6 8.5 - 10.5 mg/dL LAB CHEMISTRY METHOD 11/04/2024 10:24 AM [facility] AST (SGOT) 20 10 - 42 unit/L LAB CHEMISTRY METHOD 11/04/2024 10:24 AM [facility] ALT (SGPT) 17 10 - 60 unit/L LAB CHEMISTRY METHOD 11/04/2024 10:24 AM [facility] Alkaline Phosphatase 119 42 - 121 unit/L LAB CHEMISTRY METHOD 11/04/2024 10:24 AM [facility] Total Protein 6.7 6.0 - 8.0 g/dL [facility] Albumin 3.5 3.2 - 5.0 g/dL LAB CHEMISTRY METHOD 11/04/2024 10:24 AM EDT [facility] Total Bilirubin 0.9 0.0 - 1.4 mg/dL LAB CHEMISTRY METHOD 11/04/2024 10:24 AM [facility] Blood Venous blood specimen / Unknown Venipuncture / Unknown 11/04/2024 6:14 AM EDT 11/04/2024 9:25 AM EDT us Светлана Ball MD LAB BLOOD ORDERABLES Fin al Result [facility] [address] [place] [address], [place] [phone] * (ABNORMAL) Complete blood count (11/04/2024 6:14 AM EDT) WBC 8.1 4.8 - 10.8 K/mcL LAB HEMETOLOGY METHOD 11/04/2024 9:40 AM [facility] RBC 4.60 3.80 - 4.80 M/mcL LAB HEMETOLOGY METHOD 11/04/2024 9:40 AM [facility] Hemoglobin 14.1 11.5 - 16.0 g/dL LAB HEMETOLOGY METHOD 11/04/2024 9:40 AM [facility] Hematocrit 43.7 35.0 - 47.0 % LAB HEMETOLOGY METHOD 11/04/2024 9:40 AM [facility] MCV 94.4 79.0 - 98.0 FL LAB HEMETOLOGY METHOD 11/04/2024 9:40 AM [facility] MCH 30.5 27.0 - 32.0 pcg LAB HEMETOLOGY METHOD 11/04/2024 9:40 AM [facility] MCHC 32.3 32.0 - 37.0 g/dL LAB HEMETOLOGY METHOD 11/04/2024 9:40 AM EDT [facility] RDW 13.4 11.0 - 15.0 % LAB HEMETOLOGY METHOD 11/04/2024 9:40 AM EDT [facility] Platelets 215 130 - 400 K/mcL LAB HEMETOLOGY METHOD 11/04/2024 9:40 AM EDT [facility] MPV 11.2(H) 7.0 - 11.0 FL LAB HEMETOLOGY METHOD 11/04/2024 9:40 AM EDT [facility] NRBC 0.0 <1.0 % [facility] 11/04/2024 9:40 AM EDT [facility] NRBC Absolute 0.00 <0.10 K/mcL LAB [facility] 11/04/2024 9:40 AM EDT [facility] Blood Venous blood specimen / Unknown Venipuncture / Unknown 11/04/2024 6:14 AM EDT 11/04/2024 9:25 AM EDT Светлана Ball MD LAB BLOOD ORDERABLES Fin al Result [facility] [address] [place] [address], documented in this encounter Visit Diagnoses Diagnosis Essential (primary) hypertension Unspecified essential hypertension Hyperlipidemia, unspecified documented in this encounter Care Teams Director Compliance Relationship Specialty Start Date End Date Светлана Ball MD [address] [place] [id number] PCP - General Family Medicine 11/04/24 documented as of this encounter
--- OUTSIDE RECORDS SUMMARY | 2025-06-02 14:48 | XMS_ITS | Encounter Summary ---
Author Organization [employer] Address [address] [place] [address] Care Team Providers Care Metal Lather Name Role Phone Светлана Ball MD Primary Care Provider + Encounter Details Date Type Department Care Team (Late st Contact Info) Description 12/19/2024 Lab Requisition [facility] - Main Lab 299 [facility] [place] [address] Светлана Ball MD 819 [facility] 1 [place] [address] Muscle weakness (generalized); Unspecified sequelae of cerebral infarction; Essential (primary) [...] Associated Diagnosis Comments COMPLETE BLOOD COUNT Routine 12/22/2024 9:13 AM EDT Muscle weakness (generalized) Unspecified sequelae of cerebral infarction Essential (primary) hypertension MAGNESIUM Routine 12/22/2024 9:13 AM EDT Muscle weakness (generalized) Unspecified sequelae of cerebral infarction Essential (primary) hypertension VITAMIN B12 Routine 12/22/2024 9:13 AM EDT Muscle weakness (generalized) Unspecified sequelae of cerebral infarction Essential (primary) hypertension COMPREHENSIVE METABOLIC PANEL Routine 12/22/2024 9:13 AM EDT Muscle weakness (generalized) Unspecified sequelae of cerebral infarction Essential (primary) hypertension documented in this encounter Results * (ABNORMAL) Comprehensive metabolic panel (12/22/2024 9:13 AM EDT) Sodium 137 133 - 145 mmol/L LAB CHEMISTRY METHOD 12/22/2024 12:51 PM [facility] Potassium 4.8 3.5 - 5.5 mmol/L LAB CHEMISTRY METHOD 12/22/2024 12:51 PM [facility] Chloride 104 96 - 110 mmol/L LAB CHEMISTRY METHOD 12/22/2024 12:51 PM [facility] CO2 26 21 - 32 mmol/L LAB CHEMISTRY METHOD 12/22/2024 12:51 PM [facility] Anion Gap 7 3 - 11 LAB CHEMISTRY METHOD 12/22/2024 12:51 PM [facility] Glucose 86 70 - 100 mg/dL LAB CHEMISTRY METHOD 12/22/2024 12:51 PM [facility] BUN 15 5 - 25 mg/dL LAB CHEMISTRY METHOD 12/22/2024 12:51 PM [facility] Creatinine 0.48(L) 0.50 - 1.10 mg/dL LAB CHEMISTRY METHOD 12/22/2024 12:51 PM [facility] eGFR 91 >=60 mL/min/1. 73m2 LAB CHEMISTRY METHOD 12/22/2024 12:51 PM [facility] Comment:Calculation based on the Chronic Kidney Disease Epidemiology Collaboration (CKD-EPI) equation refit without adjustment for race. BUN/Creatinine Ratio 31.3 LAB CHEMISTRY METHOD 12/22/2024 12:51 PM [facility] Calcium 9.1 8.5 - 10.5 mg/dL LAB CHEMISTRY METHOD 12/22/2024 12:51 PM EDT [facility] AST (SGOT) 24 10 - 42 unit/L LAB CHEMISTRY METHOD 12/22/2024 12:51 PM EDT [facility] ALT (SGPT) 44 10 - 60 unit/L LAB CHEMISTRY METHOD 12/22/2024 12:51 PM [facility] Alkaline Phosphatase 114 42 - 121 unit/L LAB CHEMISTRY METHOD 12/22/2024 12:51 PM EDT [facility] Total Protein 6.1 6.0 - 8.0 g/dL LAB CHEMISTRY METHOD 12/22/2024 12:51 PM [facility] Albumin 3.2 3.2 - 5.0 g/dL LAB CHEMISTRY METHOD 12/22/2024 12:51 PM [facility] Total Bilirubin 0.5 0.0 - 1.4 mg/dL LAB CHEMISTRY METHOD 12/22/2024 12:51 PM T [facility] Blood Venous blood specimen / Unknown Venipuncture / Unknown 12/22/2024 9:13 AM EDT 12/22/2024 10:56 AM EDT us Светлана Ball MD LAB BLOOD ORDERABLES Fin al Result [facility] [address] [place] [address], * Complete blood count (12/22/2024 9:13 AM EDT) WBC 5.2 4.8 - 10.8 K/mcL LAB HEMETOLOGY METHOD [facility]2024 [facility]00 [facility] RBC 3.90 3.80 - 4.80 M/mcL LAB HEMETOLOGY METHOD 12/22/2024 12:00 PM [facility] Hemoglobin 11.9 11.5 - 16.0 g/dL LAB HEMETOLOGY METHOD 12/22/2024 12:00 PM EDT [facility] Hematocrit 36.6 35.0 - 47.0 % LAB HEMETOLOGY METHOD 12/22/2024 12:00 [facility] MCV 95.1 79.0 - 98.0 FL LAB HEMETOLOGY METHOD 12/22/2024 12:00 PM EDT [facility] MCH 30.9 27.0 - 32.0 pcg LAB HEMETOLOGY METHOD 12/22/2024 12:00 PM EDT [facility] MCHC 32.5 32.0 - 37.0 g/dL LAB HEMETOLOGY METHOD 12/22/2024 12:00 PM [facility] RDW 13.2 11.0 - 15.0 % LAB HEMETOLOGY METHOD 12/22/2024 12:00 PM EDT [facility] Platelets 291 130 - 400 K/mcL LAB HEMETOLOGY METHOD 12/22/2024 12:00 PM EDT [facility] MPV 10.7 7.0 - 11.0 FL LAB HEMETOLOGY METHOD 12/22/2024 12:00 PM [facility] NRBC 0.0 <1.0 % LAB HEMETOLOGY METHOD 12/22/2024 12:00 PM EDT [facility] NRBC Absolute 0.00 <0.10 K/mcL LAB HEMETOLOGY METHOD 12/22/2024 12:00 PM EDT [facility] Blood Venous blood specimen / Unknown Venipuncture / Unknown 12/22/2024 9:13 AM EDT 12/22/2024 10:55 AM EDT us Светлана Ball MD LAB BLOOD ORDERABLES Fin al Result [facility] [address] [place] [address], [place] [phone] * Magnesium (12/22/2024 9:13 AM EDT) Magnesium 2.0 1.9 - 2.6 mg/dL LAB CHEMISTRY METHOD 12/22/2024 12:14 PM EDT [facility] Blood Venous blood specimen / Unknown Venipuncture / Unknown 12/22/2024 9:13 AM EDT 12/22/2024 10:56 AM EDT us Светлана Ball MD LAB BLOOD ORDERABLES Fin al Result [facility] [address] [place] [address], [place] [phone] * Vitamin B12 (12/22/2024 9:13 AM EDT) Vitamin B-12 567 250 - 900 pcg/mL LAB CHEMISTRY METHOD 12/22/2024 12:51 PM EDT [facility] Blood Venous blood specimen / Unknown Venipuncture / Unknown 12/22/2024 9:13 AM EDT 12/22/2024 10:56 AM EDT Светлана Ball MD LAB BLOOD ORDERABLES Fin al Result [facility] [address] [place] [address], [place] [phone] documented in this encounter Visit Diagnoses Diagnosis Muscle weakness (generalized) Unspecified sequelae of cerebral infarction Essential (primary) hypertension Unspecified essential hypertension documented in this encounter Care Teams Metal Lather Relationship Specialty Start Date End Date Светлана Ball MD [address] [place] [id number] PCP - General Family Medicine 11/04/24 documented as of this encounter
--- OUTSIDE RECORDS SUMMARY | 2025-06-02 14:48 | XMS_ITS | Encounter Summary ---
Author Organization [employer] Address [address] [place] [address] Care Team Providers Care Poacher Wringer Operator Name Role Phone Светлана Ball MD Primary Care Provider + Encounter Details Date Type Department Care Team (Late st Contact Info) Description 02/19/2025 Lab Requisition [facility] - Main Lab 299 [facility] [employer] [place] [address] Светлана Ball MD [address] [address] Deficiency of other specified B group vitamins; Vitamin B12 deficiency anemia due to intrinsic factor deficiency; Hypomagnesemia Social History Tobacco Use Types Packs/Day Years [...] Priority Date/Time Associated Diagnosis Comments VITAMIN B12 Routine 02/19/2025 5:57 AM EDT 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 Hypomagnesemia documented in this encounter Results * Vitamin B12 (02/19/2025 5:57 AM EDT) Vitamin B-12 746 250 - 900 pcg/mL LAB CHEMISTRY METHOD 02/19/2025 9:33 AM EDT [facility] Blood Venous blood specimen / Unknown Venipuncture / Unknown 02/19/2025 5:57 AM EDT 02/19/2025 7:37 AM EDT us Светлана Ball MD LAB BLOOD ORDERABLES Fin al Result [facility] [address] [place] [address], documented in this encounter Visit Diagnoses Diagnosis 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
--- OUTSIDE RECORDS SUMMARY | 2025-06-02 14:48 | XMS_ITS | Encounter Summary ---
Author Organization [facility] [place] Address [address] [place] [address] Care Team Providers Care Advanced Manufacturing Engineer Name Role Phone Светлана Ball MD Primary Care Provider + Encounter Details Date Type Department Care Team (Late st Contact Info) Description 01/23/2025 Lab Requisition [facility] - Main Lab [address] [facility] [place] [address] Светлана Ball MD [address] [facility] 1 [place] [address] Unspecified sequelae of cerebral infarction; [...] Associated Diagnosis Comments COMPLETE BLOOD COUNT Routine 01/26/2025 9:54 AM EDT Unspecified sequelae of cerebral infarction Essential (primary) hypertension COMPREHENSIVE METABOLIC PANEL Routine 01/26/2025 9:54 AM EDT Unspecified sequelae of cerebral infarction Essential (primary) hypertension documented in this encounter Results * (ABNORMAL) Comprehensive metabolic panel (01/26/2025 9:54 AM EDT) Sodium 137 133 - 145 mmol/L LAB CHEMISTRY METHOD 01/26/2025 12:43 PM [facility] Potassium 4.6 3.5 - 5.5 mmol/L LAB CHEMISTRY METHOD 01/26/2025 12:43 PM [facility] Chloride 104 96 - 110 mmol/L LAB CHEMISTRY METHOD 01/26/2025 12:43 PM [facility] CO2 27 21 - 32 mmol/L LAB CHEMISTRY METHOD 01/26/2025 12:43 PM [facility] Anion Gap 6 3 - 11 LAB CHEMISTRY METHOD 01/26/2025 12:43 PM [facility] Glucose 73 70 - 100 mg/dL LAB CHEMISTRY METHOD 01/26/2025 12:43 PM [facility] BUN 16 5 - 25 mg/dL LAB CHEMISTRY METHOD 01/26/2025 12:43 PM [facility] Creatinine 0.50 0.50 - 1.10 mg/dL LAB CHEMISTRY METHOD 01/26/2025 12:43 PM [facility] eGFR 90 >=60 mL/min/1. 73m2 LAB CHEMISTRY METHOD 01/26/2025 12:43 PM [facility] Comment:Calculation based on the Chronic Kidney Disease Epidemiology Collaboration (CKD-EPI) equation refit without adjustment for race. BUN/Creatinine Ratio 32.0 LAB CHEMISTRY METHOD 01/26/2025 12:43 PM [facility] Calcium 8.7 8.5 - 10.5 mg/dL LAB CHEMISTRY METHOD 01/26/2025 12:43 PM [facility] AST (SGOT) 20 10 - 42 unit/L LAB CHEMISTRY METHOD 01/26/2025 12:43 PM [facility] ALT (SGPT) 15 10 - 60 unit/L LAB CHEMISTRY METHOD 01/26/2025 12:43 PM [facility] Alkaline Phosphatase 106 42 - 121 unit/L LAB CHEMISTRY METHOD 01/26/2025 12:43 PM EDT [facility] Total Protein 5.7(L) 6.0 - 8.0 g/dL LAB CHEMISTRY METHOD 01/26/2025 12:43 PM EDT [facility] Albumin 2.8(L) 3.2 - 5.0 g/dL LAB CHEMISTRY METHOD 01/26/2025 12:43 PM EDT [facility] Total Bilirubin 0.5 0.0 - 1.4 mg/dL LAB CHEMISTRY METHOD 01/26/2025 12:43 PM EDT [facility] Blood Venous blood specimen / Unknown Venipuncture / Unknown 01/26/2025 9:54 AM EDT 01/26/2025 11:15 AM EDT us Светлана Ball MD LAB BLOOD ORDERABLES Fin al Result [facility] [address] [place] [address], * (ABNORMAL) Complete blood count (01/26/2025 9:54 AM EDT) WBC 4.3(L) 4.8 - 10.8 K/mcL LAB HEMETOLOGY METHOD 01/26/2025 12:36 PM EDT [facility] RBC 3.60(L) 3.80 - 4.80 M/mcL LAB HEMETOLOGY METHOD 01/26/2025 12:36 PM EDT [facility] Hemoglobin 11.3(L) 11.5 - 16.0 g/dL LAB HEMETOLOGY METHOD 01/26/2025 12:36 PM EDT [facility] Hematocrit 33.4(L) 35.0 - 47.0 % LAB HEMETOLOGY METHOD 01/26/2025 12:36 PM EDT [facility] MCV 92.0 79.0 - 98.0 FL LAB HEMETOLOGY METHOD 01/26/2025 12:36 PM EDT [facility] MCH 31.1 27.0 - 32.0 pcg LAB HEMETOLOGY METHOD 01/26/2025 12:36 PM EDT [facility] MCHC 33.8 32.0 - 37.0 g/dL LAB HEMETOLOGY METHOD 01/26/2025 12:36 PM EDT [facility] RDW 12.0 11.0 - 15.0 % LAB HEMETOLOGY METHOD 01/26/2025 12:36 PM EDT [facility] Platelets 265 130 - 400 K/mcL LAB HEMETOLOGY METHOD 01/26/2025 12:36 PM EDT [facility] MPV 10.1 7.0 - 11.0 FL LAB HEMETOLOGY METHOD 01/26/2025 12:36 PM EDT [facility] NRBC 0.0 <1.0 % LAB HEMETOLOGY METHOD 01/26/2025 12:36 PM EDT [facility] NRBC Absolute 0.00 <0.10 K/mcL LAB HEMETOLOGY METHOD 01/26/2025 12:36 PM EDT [facility] Blood Venous blood specimen / Unknown Venipuncture / Unknown 01/26/2025 9:54 AM EDT 01/26/2025 11:15 AM EDT us Светлана Ball MD LAB BLOOD ORDERABLES Fin al Result [facility] [address] [place] [address], documented in this encounter Visit Diagnoses Diagnosis Unspecified sequelae of cerebral infarction Essential (primary) hypertension Unspecified essential hypertension documented in this encounter Care Teams Advanced Manufacturing Engineer Relationship Specialty Start Date End Date Светлана Ball MD [address] [place] [id number] PCP - General Family Medicine 11/04/24 documented as of this encounter
--- OUTSIDE RECORDS SUMMARY | 2025-06-02 14:48 | XMS_ITS | Encounter Summary ---
Author Organization [facility] Address [address] [place] [address] Care Team Providers Care District Leader Name Role Phone Светлана Ball MD Primary Care Provider + Encounter Details Date Type Department Care Team (Late st Contact Info) Description 12/12/2024 Lab Requisition [facility] - Main Lab [address] [facility] [place] [address] Светлана Ball MD [address] [facility] 1 [place] [address] Unspecified sequelae of cerebral infarction; [...] Associated Diagnosis Comments COMPLETE BLOOD COUNT Routine 12/15/2024 6:07 AM EDT Unspecified sequelae of cerebral infarction Essential (primary) hypertension COMPREHENSIVE METABOLIC PANEL Routine 12/15/2024 6:07 AM EDT Unspecified sequelae of cerebral infarction Essential (primary) hypertension documented in this encounter Results * (ABNORMAL) Comprehensive metabolic panel (12/15/2024 6:07 AM EDT) [facility] Signature Sodium 139 133 - 145 mmol/L LAB CHEMISTRY METHOD 12/15/2024 11:46 AM [facility] Potassium 5.3 3.5 - 5.5 mmol/L LAB CHEMISTRY METHOD 12/15/2024 11:46 AM [facility] Chloride 105 96 - 110 mmol/L LAB CHEMISTRY METHOD 12/15/2024 11:46 AM [facility] CO2 29 21 - 32 mmol/L LAB CHEMISTRY METHOD 12/15/2024 11:46 AM [facility] Anion Gap 5 3 - 11 LAB CHEMISTRY METHOD 12/15/2024 11:46 AM [facility] Glucose 66(L) 70 - 100 mg/dL LAB CHEMISTRY METHOD 12/15/2024 11:46 AM [facility] BUN 19 5 - 25 mg/dL LAB CHEMISTRY METHOD 12/15/2024 11:46 AM [facility] Creatinine 0.50 0.50 - 1.10 mg/dL LAB CHEMISTRY METHOD 12/15/2024 11:46 AM [facility] eGFR 90 >=60 mL/min/1. 73m2 LAB CHEMISTRY METHOD 12/15/2024 11:46 AM [facility] Comment:Calculation based on the Chronic Kidney Disease Epidemiology Collaboration (CKD-EPI) equation refit without adjustment for race. BUN/Creatinine Ratio 38.0 LAB CHEMISTRY METHOD 12/15/2024 11:46 AM [facility] Calcium 8.4(L) 8.5 - 10.5 mg/dL LAB CHEMISTRY METHOD 12/15/2024 11:46 AM [facility] AST (SGOT) 25 10 - 42 unit/L LAB CHEMISTRY METHOD 12/15/2024 11:46 AM [facility] ALT (SGPT) 31 10 - 60 unit/L LAB CHEMISTRY METHOD 12/15/2024 11:46 AM [facility] Alkaline Phosphatase 105 42 - 121 unit/L LAB CHEMISTRY METHOD 12/15/2024 11:46 AM EDT [facility] Total Protein 5.5(L) 6.0 - 8.0 g/dL LAB CHEMISTRY METHOD 12/15/2024 11:46 AM [facility] Albumin 2.8(L) 3.2 - 5.0 g/dL LAB CHEMISTRY METHOD 12/15/2024 11:46 AM EDT [facility] Total Bilirubin 0.4 0.0 - 1.4 mg/dL LAB CHEMISTRY METHOD 12/15/2024 11:46 AM T [facility] Blood Venous blood specimen / Unknown Venipuncture / Unknown 12/15/2024 6:07 AM EDT 12/15/2024 10:19 AM EDT us Светлана Ball MD LAB BLOOD ORDERABLES Fin al Result [facility] [address] [place] [address], * (ABNORMAL) Complete blood count (12/15/2024 6:07 AM EDT) WBC 5.2 4.8 - 10.8 K/mcL LAB HEMETOLOGY METHOD 12/15/2024 11:03 AM [facility] RBC 3.80 3.80 - 4.80 M/mcL LAB HEMETOLOGY METHOD 12/15/2024 11:03 [facility] Hemoglobin 11.6 11.5 - 16.0 g/dL LAB HEMETOLOGY METHOD 12/15/2024 11:03 [facility] Hematocrit 36.8 35.0 - 47.0 % LAB HEMETOLOGY METHOD 12/15/2024 11:03 AM [facility] MCV 97.9 79.0 - 98.0 FL LAB HEMETOLOGY METHOD 12/15/2024 11:03 AM EDT [facility] MCH 30.9 27.0 - 32.0 pcg LAB HEMETOLOGY METHOD 12/15/2024 11:03 AM EDT [facility] MCHC 31.5(L) 32.0 - 37.0 g/dL LAB HEMETOLOGY METHOD 12/15/2024 11:03 AM EDT [facility] RDW 13.2 11.0 - 15.0 % LAB HEMETOLOGY METHOD 12/15/2024 11:03 AM EDT [facility] Platelets 260 130 - 400 K/mcL LAB HEMETOLOGY METHOD 12/15/2024 11:03 AM EDT [facility] MPV 11.0 7.0 - 11.0 FL LAB HEMETOLOGY METHOD 12/15/2024 11:03 AM EDT [facility] NRBC 0.0 <1.0 % LAB HEMETOLOGY METHOD 12/15/2024 11:03 AM EDT [facility] NRBC Absolute 0.00 <0.10 K/mcL LAB HEMETOLOGY METHOD 12/15/2024 11:03 AM [facility] Blood Venous blood specimen / Unknown Venipuncture / Unknown 12/15/2024 6:07 AM EDT 12/15/2024 10:19 AM EDT us Светлана Ball MD LAB BLOOD ORDERABLES Fin al Result [facility] [address] [place] [address], documented in this encounter Visit Diagnoses Diagnosis Unspecified sequelae of cerebral infarction Essential (primary) hypertension Unspecified essential hypertension documented in this encounter Care Teams District Leader Relationship Specialty Start Date End Date Светлана Ball MD [address] [place] [id number] PCP - General Family Medicine 11/04/24 documented as of this encounter
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
== END 2025-06-02 15:08 | disposition home or self-care (01) ==
LOC: HO.HMCHD 11:13
PROVIDERS: Visit Provider Internal Medicine
DX: D51.9 Vitamin B12 deficiency anemia, unspecified (principal); F41.8 Other specified anxiety disorders; I10 Essential (primary) hypertension

== ENCOUNTER → 2025-06-02 11:13 | Outpatient (BNVA) | payer MEDICARE, SELFPAY | PROVIDERS: Visit Provider Internal Medicine | DX: D51.9 Vitamin B12 deficiency anemia, unspecified (principal); F41.8 Other specified anxiety disorders; I10 Essential (primary) hypertension | CPT/HCPCS: 99202 ==